=== PATIENT | male | born 1950 | race Caucasian/White ===

== ENCOUNTER 2021-10-14 20:46 | Inpatient (IN) | payer MEDICARE, MEDICAID, SELFPAY ==
--- NOTE | ~2021-10-14 | XR_ITS ---
EXAMINATION: XR chest 1V portable Exam Date/Time: 10/14/2021 21:01 CDT HISTORY: cough, covid+, sob, today HX CVA Comparison: None available. RESULT: Lines, tubes, and devices: None. Lungs and pleura: The lateral costophrenic angle is excluded from the [id number]. Lung volumes wi th crowding. Subtle patchy reticular and groundglass opacities. Cardiomediastinal silhouette: Patient is rotated to the left. Grossly normal cardiomediastinal silho uette. Other: No acute osseous or upper abdominal finding. IMPRESSION: Limited examination due to exclusion of the left inferior costophrenic angle from the [id number]-cm-melk, degree of inspiration, and rotation. Pulmonary opacities may reflect crowding with atelectasis versus atypical infection. Reviewed, dictated and finalized at location K. IMPRESSION: Limited examination due to exclusion of the left inferior costophrenic angle fr om the [id number], degree of inspiration, and rotation. Pulmonary opacities may reflect crowding with atelectasis versus atypical infection.
--- NOTE | ~2021-10-14 | XR_ITS ---
EXAMINATION: XR chest port-a-cath/central DATE: 10/15/2021 00:58 INDICATION: Central line placement. TECHNIQUE: A single frontal view of the chest was obtained. COMPARISON: Single view 10/14/2021, chest CT 10/15/2021 FINDINGS: There are airspace opacities in left lower lung zone. No pleural effusion or pneumothorax. The heart size is normal. A left internal jugular central venous catheter is seen with tip in the lef t brachiocephalic vein. IMPRESSION: 1. Central line tip in the left brachiocephalic vein. 2. Airspace opacities in left lower lung zone, consistent with pneumonia. Reviewed, dictated and finalized at location A.
--- NOTE | ~2021-10-14 | XR_ITS ---
EXAMINATION: XR chest 1V portable DATE: 10/20/2021 08:29 INDICATION: Pleural effusion. TECHNIQUE: A single frontal view of the chest was obtained. COMPARISON: Chest single view 10/18/2021, chest CT 10/15/2021 FINDINGS: The lung volumes are small. There are airspace opacities in the lower lung zones. No pleura l effusion or pneumothorax. The heart size is normal. A left internal jugular central venous catheter is seen with tip in the superior vena cava. IMPRESSION: 1. Improved airspace opacities in the lower lung zones, consistent with atelectasis versus pneumonia. Reviewed, dictated and finalized at location B. IMPRESSION: 1. Improved airspace opacities in the lower lung zones, consistent with atelect asis versus pneumonia.
--- NOTE | ~2021-10-14 | CT_ITS ---
EXAMINATION: CT chest abdomen pelvis wo con DATE: 10/15/2021 02:31 INDICATION: Shock. COVID-19 positive. TECHNIQUE: Computed tomography (CT) of the chest, abdomen, and pelvis was performed without intraveno us contrast. Automated exposure control and iterative reconstruction technique were employed. The dos e-length product was 2158.48 mGy-cm. COMPARISON: None FINDINGS: CHEST CT: There is material in the trachea. There is material in the left-sided bronchi. There are centrilobula r nodules in the lower lobes. There are mild groundglass opacities in left lower lobe and lingula. Th ere are trace pleural effusions. The heart size is normal. No pericardial effusion. A left internal j ugular central venous catheter is seen with tip in the left brachiocephalic vein. There are nodules i n the thyroid measuring up to 11 mm, likely not clinically significant. There are bridging endplate o steophytes at multiple levels in the spine, consistent with diffuse idiopathic skeletal hyperostosis (DISH). There is a chronic compression fracture of T12. ABDOMEN/PELVIS CT: There is diffuse hepatic steatosis. The gallbladder, spleen, pancreas, adrenal glands, and kidneys ar e normal. There is no urolithiasis. Stool distends the rectum. The appendix is normal. There are no p athologically enlarged lymph nodes. There is no free intraperitoneal fluid. The bladder is decompress ed by a Stringer catheter. The prostate is moderately enlarged. There is mild lumbar spondylosis. IMPRESSION: 1. Material in the trachea and left-sided bronchi, which may be aspiration or mucus. 2. Pneumonia involving the lower lobes and lingula. Reviewed, dictated and finalized at location A. IMPRESSION: 1. Material in the trachea and left-sided bronchi, which may be aspiration or m ucus. 2. Pneumonia involving the lower lobes and lingula.
--- NOTE | ~2021-10-14 | XR_ITS ---
EXAMINATION: XR chest 1V portable Exam Date/Time: 10/18/2021 13:45 CDT HISTORY: pna DROPLET PRECAUTIONS Comparison: None available. RESULT: Lines, tubes, and devices: Left IJ central line remains in stable and good position. Lungs and pleura: Worsening bilateral mid and lower lung opacities increasing blunting of the bilate ral costophrenic angles. Cardiomediastinal silhouette: Stable, partially obscured cardiomediastinal silhouette. Other: No acute osseous or upper abdominal finding. IMPRESSION: Worsening pulmonary opacities, may reflect pulmonary edema and/or worsening infection/pneumonitis wit h increasing small bilateral effusions. Reviewed, dictated and finalized at location K. IMPRESSION: Worsening pulmonary opacities, may reflect pulmonary edema and/or worsening inf ection/pneumonitis with increasing small bilateral effusions.
[2021-10-14 20:47] VITALS: BP 153/61; PULSE 78; RESP 13; TEMP 39.4; O2SAT 93
--- NOTE | 2021-10-14 20:54 | ED.AMS ---
HPI - Altered Mental Status General Chief Complaint: Altered Mental Status Stated Complaint: AMS , COVID + TODAY Time Seen by Provider: 10/14/21 20:52 History of Present Illness HPI narrative: Per [facility], patient is usually ANO x3, but he seems confused today, with cough and phlegm. Patient unable to verbalize anything at this time. Related Data Allergies Allergy/AdvReac Type Severity Reaction Status Date / Time moxifloxacin Allergy Unknown Verified 10/14/21 20:58 Review of Systems Review of Systems: ROS unobtainable: Yes unobtainable due to medical condition [facility] Past Medical History Medical History (Updated 10/14/21 @ 23:05 by Noreen Guardado MD) CVA (cerebral vascular accident) Diabetes Exam Narrative: EXAMINATION OF ORGAN SYSTEMS/BODY AREAS: Constitutional: Vital signs per nursing GENERAL:Appears uncomfortable in bed, coughing and eyes closed HEAD: Normal with no signs of head trauma. EYES: Eyes closed ENT: Airway intact LUNGS: Nonlabored breathing. HEART: Tachycardic ABD: [Soft], [nontender to palpation] EXT: Left side weakness SKIN: [No rashes or lesions or ulcers NEURO: [Lethargic.] Course Vital Signs Vital signs: Vital Signs Temperature 103 F H 10/14/21 20:47 Pulse Rate 78 10/14/21 20:47 Respiratory Rate 13 10/14/21 20:47 Blood Pressure 153/61 H 10/14/21 20:47 Pulse Oximetry 93 10/14/21 20:47 Oxygen Delivery Room Air 10/14/21 20:47 Temperature 103 F H 10/14/21 20:47 Pulse Rate 78 10/14/21 20:47 Respiratory Rate 13 10/14/21 20:47 Blood Pressure 153/61 H 10/14/21 20:47 Pulse Oximetry 95 10/14/21 20:56 Oxygen Delivery Nasal Cannula 10/14/21 20:56 Oxygen Flow Rate 2 10/14/21 20:56 MDM - Altered Mental Status MDM Narrative Medical decision making narrative: 71yoM p/w COVID+ and lethargy, VS notable for fever, exam shows lethargic confused patient who isn't speaking. He is treated with oxygen, IV fluids, Tylenol, and on reevaluation is now alert, oriented, speaking and telling me that he just does not feel well at all. Labs and imaging within acceptable limits. He will be admitted due to his oxygen requirement, he is started on decadron, case discussed with hospitalist Dr. Costello. Lab Data Result diagrams: 10/14/21 21:34 10/14/21 21:34 Labs: Lab Results 10/14/21 10/14/21 10/14/21 Range/Units 21:34 21:34 21:34 WBC 8.1 (4.5-10.0) K/mm3 RBC 4.54 L (4.6-6.20) M/mm3 Hgb 13.4 L (14.0-18.0) g/dL Hct 41.7 L (42.0-52.0) % MCV 91.9 (80-100) fl MCH 29.5 (26-34) pg MCHC 32.1 (32-36) g/dl RDW 13.9 (11.5-14.5) % Plt Count 323 (150-375) k/mm3 MPV 10.0 (7.4-10.4) fl Immature Gran % (Auto) 0.5 (0-0.5) % Neut % (Auto) 78.9 H (45.5-73.1) % Lymph % (Auto) 12.0 L (18.3-44.2) % [place] % (Auto) 7.8 (2.6-8.5) % Eos % (Auto) 0.4 (0-4.4) % Baso % (Auto) 0.4 (0.2-1.2) % Lymph # (Auto) 0.97 (0.9-3.2) K/mm3 [place] # (Auto) 0.6 (0.1-0.6) K/mm3 Eos # (Auto) 0.0 (0-0.3) K/mm3 Baso # (Auto) 0.0 (0.0-0.1) K/mm3 Abs Immat Gran (auto) 0.04 H (0.00-0.031) K/mm3 Absolute Neuts (auto) 6.4 (1.3-6.7) K/mm3 Absolute Nucleated RBC 0.0 (0.0-0.012) K/mm3 Nucleated RBC % 0.0 (0.0-0.2) % Sodium 134 L (137-145) mmol/L Potassium 3.4 (3.4-5.0) mmol/L Chloride 98 (98-107) mmol/L Carbon Dioxide 28 (22-30) mmol/L Anion Gap 8 (8-16) mmol/L BUN 22 H (9-20) mg/dL Creatinine 1.50 H (0.7-1.3) mg/dL Estim Creat Clear Calc 53 ml/min Estimated GFR 46 L (59 - ) Glucose 276 H (65-110) mg/dL Calcium 9.0 (8.4-10.2) mg/dL Total Bilirubin 0.8 (0.2-1.3) mg/dL AST 31 (17-59) U/L ALT 23 (6-50) U/L Alkaline Phosphatase 90 (38-126) U/L Total Protein 8.0 (6.3-8.2) g/dL Albumin 3.8 (3.5-5.1) g/dL Urine Color Yellow (Yellow) Urine Appearance Clear (Clear) Urine
[2021-10-14 20:56] VITALS: O2SAT 95
[2021-10-14 21:44] LABS: Basophils Percent Auto 0.4 % (0.2-1.2); Eosinophils Percent Auto 0.4 % (0-4.4); Hematocrit 41.7 % (42.0-52.0); Hemoglobin 13.4 g/dL (14.0-18.0); Immature Granulocyte Absolute 0.04 K/mm3 (0.00-0.031); Immature Granulocyte Percent A 0.5 % (0-0.5); Lymphocytes Absolute Auto 0.97 K/mm3 (0.9-3.2); Mean Corpuscular HGB Conc 32.1 g/dl (32-36); Mean Corpuscular Hemoglobin 29.5 pg (26-34); Mean Corpuscular Volume 91.9 fl (80-100); Monocytes Absolute Auto 0.6 K/mm3 (0.1-0.6); Monocytes Percent Auto 7.8 % (2.6-8.5); Neutrophils Absolute Auto 6.4 K/mm3 (1.3-6.7); Neutrophils Percent Auto 78.9 % (45.5-73.1); Platelet Count Result 323 k/mm3 (150-375); Red Blood Count 4.54 M/mm3 (4.6-6.20); Red Cell Distribution Width 13.9 % (11.5-14.5); White Blood Count 8.1 K/mm3 (4.5-10.0)
[2021-10-14 21:50] LABS: Appearance Urine Clear (Clear); Bilirubin Urine Negative (Negative); Blood Urine Negative (Negative); Color Urine Yellow (Yellow); Glucose Urine UA Trace mg/dL (Negative); Ketones Urine Negative (Negative); Leukocyte Esterase Ur Negative LEU/UL (Negative); Nitrate Urine Negative (Negative); Protein Urine 1+ mg/dL (Negative); pH Urine 5.5 (5.0-9.0)
[2021-10-14 21:58] LABS: Alanine Aminotransferase 23 U/L (6-50); Albumin Level 3.8 g/dL (3.5-5.1); Alkaline Phosphatase 90 U/L (38-126); Anion Gap 8 mmol/L (8-16); Aspartate Amino Transferase 31 U/L (17-59); Bilirubin,Total 0.8 mg/dL (0.2-1.3); Blood Urea Nitrogen 22 mg/dL (9-20); Carbon Dioxide 28 mmol/L (22-30); Chloride 98 mmol/L (98-107); Estimated CRCL calculation 53 ml/min; Estimated Glomerular Filt Rate 46; Glucose 276 mg/dL (65-110); Potassium 3.4 mmol/L (3.4-5.0); Sodium 134 mmol/L (137-145)
[2021-10-14 22:00] LABS: Bacteria Urine Trace /hpf; Mucus Urine Rare /lpf; WBC Urine 0-3 /hpf
[2021-10-14 22:01] LABS: Add Urine Microscopic? YES
[2021-10-14] MEDS: LACTATED RINGERS 1,000 ML 999 ML IV CONT (23:06)
[2021-10-15] VITALS (29 sets, daily range): BP systolic 79–139; BP diastolic 31–84; PULSE 44–91; RESP 8–29; TEMP 36.2–37.2; O2SAT 91–99; BMI 37.9
--- NOTE | 2021-10-15 00:12 | PC.NURSE ---
Pt found to be hypotensive after taking shift report. EDP notified and 1L of lactated ringer's ordered and infusing at this time.
[2021-10-15] MEDS: LACTATED RINGERS 1,000 ML 999 ML IV CONT ×2 (00:14→00:30)
--- NOTE | 2021-10-15 00:24 | PC.NURSE ---
Verbal consent received for central line at this time
--- NOTE | 2021-10-15 00:25 | PC.NURSE ---
VORB received for vancomycin and cefepime at this time.
[2021-10-15] MEDS: NOREPINEPHRINE 8 MG/D5W 250 ML 8 MG/250 ML BAG 9.38 MG IV CONT (00:55)
--- NOTE | 2021-10-15 01:09 | PC.NURSE ---
Per EDP Dr. Guardado the pt should have received a total of three liters of LR which have been infused. There is still one order for a bolus of LR on the JUL which is not needed at this time. Discussed w/ Dr. Barker about titrating norepinephrine to maintain MAP of 65-70.
--- NOTE | 2021-10-15 02:06 | PM.IMHP ---
H&P: HPI History of Present Illness Date/Time: 10/15/21 02:07 Chief Complaint: Altered mental status, diagnosed with COVID today Narrative: 71-year-old male with past medical history of diabetes mellitus and left hemiplegia due to prior CVA who [facility] ER from [facility] via [facility] due to increased work of breathing and altered mental status. Patient was diagnosed with COVID earlier today. Review of Systems Review of Systems: Review of systems was attempted but limited due to the patient's acute metabolic encephalopathy due to septic shock. [facility] Past Medical History Medical History CVA (cerebral vascular accident) Diabetes Surgical History Surgical History Surgical history unknown Family History Family History Other Unknown family medical history Social History Social History (Updated 10/15/21 @ 03:54 by Sola Costello DO) Social History: He has resided at [facility] since 06/04/2019. I am unable to obtain any other social history due to patient's metabolic encephalopathy. Code status: Full code per advance directive form Healthcare power of steamfitter apprentice: Monique Danilo (sister) Smoking status: Former smoker Alcohol intake: former Substance use: never Spiritual care concerns: No Meds Home Medications and Allergies Home Medications Medication Instructions Recorded Confirmed Type acetaminophen 325 mg tablet 325 mg PO Q6-8H PRN Fever Or Pain 10/15/21 10/15/21 History apixaban 5 mg tablet (Eliquis) 5 mg PO BID 10/15/21 10/15/21 History cholecalciferol (vitamin D3) 50 50 mcg PO DAILY 10/15/21 10/15/21 History mcg (2,000 unit) capsule (Vitamin D3) escitalopram oxalate 10 mg tablet 10 mg PO DAILY 10/15/21 10/15/21 History glipizide 10 mg tablet 10 mg PO BID 10/15/21 10/15/21 History insulin aspart U-100 100 unit/mL 18 unit subcut TID 10/15/21 10/15/21 History subcutaneous solution (Novolog U-100 Insulin aspart) insulin glargine 100 unit/mL 70 unit subcut QPM 10/15/21 10/15/21 History subcutaneous solution (Lantus U-100 Insulin) loratadine 10 mg tablet 10 mg PO DAILY 10/15/21 10/15/21 History losartan 100 1 tablet PO BID 10/15/21 10/15/21 History mg-hydrochlorothiazide 12.5 mg tablet sennosides 8.6 mg-docusate sodium 1 tab-cap PO HS 10/15/21 10/15/21 History 50 mg tablet (Senexon-S) simvastatin 10 mg tablet 10 mg PO DAILY 10/15/21 10/15/21 History trazodone 50 mg tablet 50 mg PO HS 10/15/21 10/15/21 History vitamin B complex (B 1 tablet PO DAILY 10/15/21 10/15/21 History Complex-Vitamin B12 tablet) Allergies Allergy/AdvReac Type Severity Reaction Status Date / Time moxifloxacin Allergy Unknown Verified 10/14/21 20:58 Vital Signs Vital Signs - 24 hr 10/14/21 20:47 10/14/21 20:56 10/15/21 00:13 Temperature 103 F H Pulse Rate 78 66 Respiratory Rate 13 25 H Blood Pressure 153/61 H 93/80 L Pulse Oximetry 93 95 94 Oxygen Delivery Room Air Nasal Cannula Oxygen Flow Rate 2 10/15/21 00:31 10/15/21 00:40 10/15/21 00:55 Temperature Pulse Rate 63 Respiratory Rate Blood Pressure 85/31 L 96/38 L 96/38 L Pulse Oximetry Oxygen Delivery Oxygen Flow Rate 10/15/21 01:02 10/15/21 01:06 10/15/21 01:27 Temperature Pulse Rate 56 L 64 Respiratory Rate 29 H 29 H Blood Pressure 100/43 L 139/55 L Pulse Oximetry 96 94 95 Oxygen Delivery Nasal Cannula Oxygen Flow Rate 3 10/15/21 02:02 Temperature 99 F Pulse Rate Respiratory Rate Blood Pressure Pulse Oximetry Oxygen Delivery Oxygen Flow Rate Exam Narrative: Weight 120 kg BMI 38 Const: Other: Acutely ill-appearing, obese HENMT: Other: Mucous membranes are dry, head is normocephalic atraumatic, nasal cannula in place, crowded posterior oropharynx E
[2021-10-15 02:19] LABS: Lactic Acid Reflex 2.9 mmol/L (0.7-2.0)
[2021-10-15] MEDS: NEOMYCIN/POLYMYXIN/BACITRACIN OINTMENT 15 GM TUBE 1 APPLIC TOPICAL (02:47)
[2021-10-15] MEDS: REMDESIVIR 200 MG/NS 250 ML 200 MG/250 ML BAG 250 MG IVPB (03:18)
[2021-10-15] MEDS: SODIUM CHLORIDE 0.9% IV 1,000 ML 50 ML IV CONT (03:19)
[2021-10-15 03:26] LABS: Procalcitonin 0.3 ng/mL
[2021-10-15 05:07] LABS: Reflex Lactic Acid Yes or No Add Lactic
[2021-10-15] MEDS: BISACODYL 10 MG SUPPOSITORY RECTAL (05:09)
[2021-10-15 05:25] LABS: Hematocrit 37.6 % (42.0-52.0); Hemoglobin 11.9 g/dL (14.0-18.0); Mean Corpuscular HGB Conc 31.6 g/dl (32-36); Mean Corpuscular Hemoglobin 29.8 pg (26-34); Mean Platelet Volume 9.8 fl (7.4-10.4); Platelet Count Result 287 k/mm3 (150-375); Red Cell Distribution Width 13.7 % (11.5-14.5); White Blood Count 8.2 K/mm3 (4.5-10.0)
[2021-10-15 05:34] LABS: Lactic Acid Reflex 1.9 mmol/L (0.7-2.0)
[2021-10-15 05:36] LABS: INR 1.6; Prothrombin Time 18.5 Seconds (11.1-14.7)
[2021-10-15 05:56] LABS: Alanine Aminotransferase 21 U/L (6-50); Albumin Level 3.2 g/dL (3.5-5.1); Alkaline Phosphatase 66 U/L (38-126); Anion Gap 9 mmol/L (8-16); Aspartate Amino Transferase 25 U/L (17-59); Bilirubin,Total 0.8 mg/dL (0.2-1.3); Blood Urea Nitrogen 22 mg/dL (9-20); Calcium 8.2 mg/dL (8.4-10.2); Carbon Dioxide 24 mmol/L (22-30); Chloride 99 mmol/L (98-107); Estimated CRCL calculation 51 ml/min; Estimated Glomerular Filt Rate 46; Glucose 409 mg/dL (65-110); Lactate Dehydrogenase 371 U/L (313-618); Potassium 3.7 mmol/L (3.4-5.0); Sodium 132 mmol/L (137-145)
[2021-10-15 06:00] LABS: CRP 12.7 mg/dL (<1.0)
[2021-10-15 06:01] LABS: SARS-CoV-2 RNA PCR Positive
--- NOTE | 2021-10-15 06:04 | PCRCNOTE ---
Patient was ordered an incentive spirometer this morning. Patient is still fairly sleepy, dayshift therapist will teach patient.
[2021-10-15] MEDS: INSULIN ASPART (*BKC) 100 UNITS/ML SUB-Q ×5 (07:36→21:13)
[2021-10-15] MEDS: APIXABAN 5 MG TABLET PO ×2 (07:45→16:56)
[2021-10-15] MEDS: CHOLECALCIFEROL 1,000 UNITS TABLET 2000 UNITS PO (07:45)
[2021-10-15] MEDS: DEXAMETHASONE SOD PHOS INJ 4 MG/ML VIAL 6 MG IV PUSH (07:45)
[2021-10-15] MEDS: ESCITALOPRAM OXALATE 10 MG TABLET PO (07:46)
[2021-10-15] MEDS: LORATADINE 10 MG TABLET PO (07:46)
[2021-10-15] MEDS: ALBUTEROL SULFATE NEB 2.5 MG/3 ML INH 5 MG INHALATION ×3 (08:21→21:40)
[2021-10-15] MEDS: IPRATROPIUM BR 0.02% INH SOLN 0.5 MG/2.5 ML VIAL INHALATION ×3 (08:21→21:40)
[2021-10-15 08:45] LABS: Glucose Point of Care 408 mg/dl (65-105)
--- NOTE | 2021-10-15 08:58 | WPDCNINT ---
Assessment and Plan Assessment and plan (1) Septic shock: Code(s): A41.9 - Sepsis, unspecified organism; R65.21 - Severe sepsis with septic shock Status: Acute Assessment and Plan: patient met criteria for septic shock and was hypertensive in the ED received 30 mL/kg IV fluid bolus continue maintenance IV fluids Levophed titration to maintain map and is requiring low-dose at this time lactic acid has normalized source likely says aspiration pneumonia change cefepime to Zosyn continue vancomycin blood cultures have been sent and a (2) Type 2 diabetes mellitus with hyperglycemia, with long-term current use of insulin: Code(s): E11.65 - Type 2 diabetes mellitus with hyperglycemia; Z79.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 of insulin Status: Acute Assessment and Plan: poorly controlled and blood sugars elevated likely worsened by dexamethasone will give Lantus at this time and change sliding scale to q.4 hours high may need insulin infusion if unable to control with these measures (3) Dysphagia: Code(s): R13.10 - Dysphagia, unspecified Status: Acute Assessment and Plan: consult speech therapy for swallow evaluation CT scan does not show any mass depending on swallow evaluation results he may need GI evaluation (4) Acute kidney injury: Code(s): N17.9 - Acute kidney failure, unspecified Status: Acute Assessment and Plan: presented with creatinine of 1.5 which is slightly higher than normal. baseline Creatinine unknown continue IV fluids Check CK level check urine electrolytes monitor urine output creatinine electrolytes CT scan denies show any hydronephrosis or stones (5) COVID-19: Code(s): U07.1 - COVID-19 Status: Acute Assessment and Plan: patient tested for COVID-19. He was vaccinated in May of 2020 with 2 doses but not receive any booster CT scan does not suggest COVID-19 pneumonia but rather consistent with aspiration pneumonia he is on remdesivir and dexamethasone since he is hypoxic (6) Aspiration pneumonia: Code(s): J69.0 - Pneumonitis due to inhalation of food and vomit Status: Acute Assessment and Plan: see above (7) Metabolic encephalopathy: Code(s): G93.41 - Metabolic encephalopathy Status: Acute Assessment and Plan: likely secondary to sepsis. Seems to have improved as patient is now alert oriented x3 And at baseline check ammonia and TSH avoid sedatives continue to monitor (8) Constipation: Code(s): K59.00 - Constipation, unspecified Status: Acute Assessment and Plan: scheduled MiraLax and Colace p.r.n. Dulcolax suppository may need enema if these are ineffective Additional Plan DVT prophylaxis - continue liquids Stress ulcer prophylaxis - Pepcid Nutrition - NPO until swallow evaluation done Code Status - Full Code Total Critical Care Time - 35 minutes Due to a high probability of clinically significant, life threatening deterioration, the patient required my highest level of preparedness to intervene emergently and I personally spent this critical care time directly and personally managing the patient. This critical care time included obtaining a history; examining the patient; pulse oximetry; ordering and review of studies; arranging urgent treatment with development of a management plan; evaluation of patient's response to treatment; frequent reassessment; and discussions with other providers. It was exclusive of separately billable procedures and treating other patients and teaching time. Please see Assessment and Plan section and the rest of the note for further information on patient assessment and treatment Public Health Teacher Consult Note Consult date: 10/15/21 Reason for consult: Pneumonia, COVID-19, septic shock HPI: Riley Priest is a 71 year old male with possible history of diabetes mellitus, CVA jose
[2021-10-15] MEDS: INSULIN GLARGINE (*BKC) 100 UNITS/ML 40 UNITS SUB-Q (09:00)
[2021-10-15] MEDS: PIPERACILLIN/TAZOBACTAM SOD 4.5 GM in SODIUM CHLORIDE 0.9% IV 100 ML 200 ML IVPB ×3 (09:01→21:04)
--- NOTE | 2021-10-15 09:52 | PCSTNOTE ---
Please refer to the Bedside Swallow Evaluation in the EMR. Please note, silent aspiration cannot be ruled out at bedside.
[2021-10-15] MEDS: SIMVASTATIN 10 MG TABLET PO (10:00)
[2021-10-15] MEDS: FAMOTIDINE 20 MG/2 ML VIAL IV PUSH ×2 (10:00→21:06)
[2021-10-15 10:32] LABS: Creatine Kinase 274 U/L (55-170)
[2021-10-15 10:33] LABS: Ammonia < 9 umol/L (9-30)
[2021-10-15 10:49] LABS: Glucose Point of Care 440 mg/dl (65-105)
[2021-10-15 11:47] LABS: Creatinine Urine 51.1 mg/dL
[2021-10-15 12:01] LABS: Sodium Urine Random 60 meq/L
[2021-10-15 13:10] LABS: Glucose Point of Care 410 mg/dl (65-105)
[2021-10-15 14:18] LABS: Glucose Point of Care 305 mg/dl (65-105)
[2021-10-15 15:35] LABS: Glucose Point of Care 328 mg/dl (65-105)
[2021-10-15 16:42] LABS: Glucose Point of Care 322 mg/dl (65-105)
[2021-10-15] MEDS: INSULIN GLARGINE (*BKC) 100 UNITS/ML 30 UNITS SUB-Q (16:55)
[2021-10-15] MEDS: REMDESIVIR 100 MG/NS 250 ML 100 MG/250 ML BAG 250 MG IVPB (21:04)
[2021-10-15] MEDS: SENNA/DOCUSATE SODIUM TABLET 1 TAB PO (21:06)
[2021-10-15 21:32] LABS: Glucose Point of Care 308 mg/dl (65-105)
[2021-10-15 22:29] LABS: Thyroid Stimulating Hormone Reflex 0.436 uIU/mL (0.465-4.68)
[2021-10-16] VITALS (16 sets, daily range): BP systolic 81–117; BP diastolic 40–61; PULSE 42–64; RESP 13–24; TEMP 35.8–36.6; O2SAT 96–100
[2021-10-16] MEDS: INSULIN ASPART (*BKC) 100 UNITS/ML SUB-Q ×6 (00:23→21:01)
[2021-10-16 00:30] LABS: Glucose Point of Care 291 mg/dl (65-105)
[2021-10-16] MEDS: SODIUM CHLORIDE 0.9% IV 1,000 ML 50 ML IV CONT (00:53)
[2021-10-16 00:54] LABS: Free T4 Free Thyroxine Reflex 1.38 ng/dL (0.78-2.19)
[2021-10-16] MEDS: PIPERACILLIN/TAZOBACTAM SOD 4.5 GM in SODIUM CHLORIDE 0.9% IV 100 ML 200 ML IVPB ×4 (02:21→20:06)
[2021-10-16 02:50] LABS: Total Triiodothyronine (T3) 0.67 NG/ML (0.97-1.69)
[2021-10-16] MEDS: ALBUTEROL SULFATE NEB 2.5 MG/3 ML INH 5 MG INHALATION ×4 (03:26→20:29)
[2021-10-16] MEDS: IPRATROPIUM BR 0.02% INH SOLN 0.5 MG/2.5 ML VIAL INHALATION ×4 (03:27→20:30)
[2021-10-16 04:35] LABS: Glucose Point of Care 333 mg/dl (65-105)
[2021-10-16 04:39] LABS: Hematocrit 31.2 % (42.0-52.0); Hemoglobin 10.3 g/dL (14.0-18.0); Mean Corpuscular Hemoglobin 29.7 pg (26-34); Mean Corpuscular Volume 89.9 fl (80-100); Mean Platelet Volume 10.2 fl (7.4-10.4); Platelet Count Result 258 k/mm3 (150-375); Red Blood Count 3.47 M/mm3 (4.6-6.20); Red Cell Distribution Width 13.6 % (11.5-14.5); White Blood Count 9.3 K/mm3 (4.5-10.0)
[2021-10-16 04:50] LABS: INR 2.2; Prothrombin Time 23.2 Seconds (11.1-14.7)
[2021-10-16 04:56] LABS: Alanine Aminotransferase 16 U/L (6-50); Albumin Level 2.7 g/dL (3.5-5.1); Alkaline Phosphatase 46 U/L (38-126); Anion Gap 5 mmol/L (8-16); Aspartate Amino Transferase 18 U/L (17-59); Bilirubin,Total 0.2 mg/dL (0.2-1.3); Blood Urea Nitrogen 31 mg/dL (9-20); Calcium 7.9 mg/dL (8.4-10.2); Carbon Dioxide 25 mmol/L (22-30); Chloride 100 mmol/L (98-107); Estimated CRCL calculation 55 ml/min; Estimated Glomerular Filt Rate 50; Glucose 314 mg/dL (65-110); Magnesium 1.6 mg/dL (1.6-2.3); Phosphorus 2.4 mg/dL (2.5-4.5); Potassium 2.8 mmol/L (3.4-5.0); Sodium 130 mmol/L (137-145)
[2021-10-16] MEDS: KCL 40 MEQ/WATER 100 ML 100 ML 25 ML IVPB (05:47)
--- NOTE | 2021-10-16 08:21 | ECG_ITS ---
Measurements Intervals [place] Rate: 51 P: 248 [place]: 125 QRS: -46 QRSD: 122 T: 6 QT: 492 QTc: 456 Interpretive Statements SINUS BRADYCARDIA POSSIBLE RIGHT VENTRICULAR CONDUCTION DELAY [RSR (QR) IN V1/V2] LEFT ANTERIOR FASCICULAR BLOCK [QRS AXIS <= -45, QR IN I, RS IN II] NONSPECIFIC T-WAVE ABNORMALITY NO PREVIOUS ECG AVAILABLE FOR COMPARISON Electronically Signed On 10-16-2021 14:12:43 CDT by Will Gonzalez M.D.
[2021-10-16] MEDS: SIMVASTATIN 10 MG TABLET PO (09:18)
[2021-10-16] MEDS: CHOLECALCIFEROL 1,000 UNITS TABLET 2000 UNITS PO (09:18)
[2021-10-16] MEDS: LORATADINE 10 MG TABLET PO (09:18)
[2021-10-16] MEDS: APIXABAN 5 MG TABLET PO ×2 (09:18→16:10)
[2021-10-16] MEDS: polyethylene glycoL 3350 17 GM POWD.PACK PO (09:18)
[2021-10-16] MEDS: DEXAMETHASONE SOD PHOS INJ 4 MG/ML VIAL 6 MG IV PUSH (09:18)
[2021-10-16] MEDS: ESCITALOPRAM OXALATE 10 MG TABLET PO (09:18)
[2021-10-16] MEDS: FAMOTIDINE 20 MG/2 ML VIAL IV PUSH ×2 (09:18→20:08)
[2021-10-16] MEDS: POTASSIUM CHLORIDE 20 MEQ PACKET (FOR LIQUID) 40 MEQ PO (09:19)
--- NOTE | 2021-10-16 10:06 | WPDINTPN ---
Progress Note: A&P Assessment and Plan (1) Septic shock: Code(s): A41.9 - Sepsis, unspecified organism; R65.21 - Severe sepsis with septic shock Status: Acute Assessment and Plan: patient met criteria for septic shock and was hypotensive in the ED received 30 mL/kg IV fluid bolus continue maintenance IV fluids for now Levophed has been weaned off since yesterday lactic acid has normalized source likely appears to be aspiration pneumonia and patient is also growing Gram-positive cocci in his blood cultures Identification a susceptibilities are pending continue vancomycin and Zosyn His blood pressure has been soft while he sleeps but improves when he is awake (2) Type 2 diabetes mellitus with hyperglycemia, with long-term current use of insulin: Code(s): E11.65 - Type 2 diabetes mellitus with hyperglycemia; Z79.4 - [facility] (current) use of insulin Status: Acute Assessment and Plan: poorly controlled and blood sugars elevated likely worsened by dexamethasone Increase dose of Lantus Add with meal insulin Change sliding scale to Q a.c. and HS (3) Dysphagia: Code(s): R13.10 - Dysphagia, unspecified Status: Acute Assessment and Plan: Patient had a swallow evaluation done by speech therapist yesterday and is on modified diet He awaits paid him swallow is poor delayed because of him being tested for COVID-19 CT scan does not show any mass (4) Acute kidney injury: Code(s): N17.9 - Acute kidney failure, unspecified Status: Acute Assessment and Plan: presented with creatinine of 1.5 which is slightly higher than normal. baseline Creatinine unknown continue IV fluids CK level to 74 FENA 1.3% check urine electrolytes monitor urine output creatinine electrolytes CT scan did not show any hydronephrosis or stones (5) COVID-19: Code(s): U07.1 - COVID-19 Status: Acute Assessment and Plan: patient tested for COVID-19. He was vaccinated in May of 2020 with 2 doses but did not receive any booster CT scan does not suggest COVID-19 pneumonia but rather consistent with aspiration pneumonia he was started on remdesivir and dexamethasone since he was hypoxic on presentation but now he is on room air (6) Aspiration pneumonia: Code(s): J69.0 - Pneumonitis due to inhalation of food and vomit Status: Acute Assessment and Plan: see above (7) Metabolic encephalopathy: Code(s): G93.41 - Metabolic encephalopathy Status: Acute Assessment and Plan: likely secondary to sepsis. Seems to have improved as patient is now alert oriented x3 And at baseline Normal ammonia and slightly abnormal TSH Patient is now AO x3 avoid sedatives continue to monitor (8) Constipation: Code(s): K59.00 - Constipation, unspecified Status: Acute Assessment and Plan: Improved with scheduled MiraLax and Colace Continue p.r.n. Dulcolax suppository Additional Plan DVT prophylaxis - continue Eliquis Stress ulcer prophylaxis - Pepcid Nutrition -modified diet as per swallow evaluation Code Status - Full Code Transfer out of ICU today Subjective Date/time seen: 10/16/21 10:06 Patient has remained off of Levophed since yesterday. His blood pressure was soft while he was sleeping and he was bradycardic. He appears to have apneic episodes when sleeping and appears to have sleep apnea. Otherwise he denies any complaints. Still has some cough but no shortness of breath or chest pain denies any fever and was afebrile overnight. He had bowel movement and urine output was adequate. Had a swallow study and is on modified diet as per recommendations from speech therapist. All other systems were reviewed and were negative Review of Systems Review of Systems: All systems reviewed & are unremarkable except as noted in HPI and below ( HPI) Exam Narrative: General: Pt is alert awake and
[2021-10-16] MEDS: POTASSIUM PHOS,M-BASIC-D-BASIC 20 MMOL in SODIUM CHLORIDE 0.9% IV 250 ML 64.17 MMOL IVPB (11:02)
[2021-10-16] MEDS: ALBUMIN HUMAN 25% 25 GM/100 ML 100 ML IVPB ×3 (11:02→23:44)
[2021-10-16 11:15] LABS: Glucose Point of Care 267 mg/dl (65-105)
[2021-10-16 11:15] LABS: Glucose Point of Care 214 mg/dl (65-105)
--- NOTE | 2021-10-16 11:47 | PM.IMPN ---
Progress Note: A&P Assessment and Plan (1) Septic shock: Code(s): A41.9 - Sepsis, unspecified organism; R65.21 - Severe sepsis with septic shock Status: Acute Assessment and Plan: patient met criteria for septic shock and was hypotensive in the ED received 30 mL/kg IV fluid bolus continue maintenance IV fluids for now Levophed has been weaned off since yesterday lactic acid has normalized source likely appears to be aspiration pneumonia and patient is also growing Gram-positive cocci in his blood cultures Identification a susceptibilities are pending continue vancomycin and Zosyn, started October 15, 2021 His blood pressure has been soft while he sleeps but improves when he is awake (2) Type 2 diabetes mellitus with hyperglycemia, with long-term current use of insulin: Code(s): E11.65 - Type 2 diabetes mellitus with hyperglycemia; Z79.4 - middle or intermediate school principal (current) use of insulin Status: Acute Assessment and Plan: poorly controlled and blood sugars elevated likely worsened by dexamethasone Increase dose of Lantus Add with meal insulin Change sliding scale to Q a.c. and HS (3) Dysphagia: Code(s): R13.10 - Dysphagia, unspecified Status: Acute Assessment and Plan: Patient had a swallow evaluation done by speech therapist yesterday and is on modified diet He awaits paid him swallow is poor delayed because of him being tested for COVID-19 CT scan does not show any mass (4) Acute kidney injury: Code(s): N17.9 - Acute kidney failure, unspecified Status: Acute Assessment and Plan: presented with creatinine of 1.5 which is slightly higher than normal. baseline Creatinine unknown continue IV fluids CK level to 74 FENA 1.3% check urine electrolytes monitor urine output creatinine electrolytes CT scan did not show any hydronephrosis or stones (5) COVID-19: Code(s): U07.1 - COVID-19 Status: Acute Assessment and Plan: patient tested for COVID-19. He was vaccinated in May of 2020 with 2 doses but did not receive any booster CT scan does not suggest COVID-19 pneumonia but rather consistent with aspiration pneumonia he was started on remdesivir and dexamethasone since he was hypoxic on presentation but now he is on room air (6) Aspiration pneumonia: Code(s): J69.0 - Pneumonitis due to inhalation of food and vomit Status: Acute Assessment and Plan: see above (7) Metabolic encephalopathy: Code(s): G93.41 - Metabolic encephalopathy Status: Acute Assessment and Plan: likely secondary to sepsis. Seems to have improved as patient is now alert oriented x3 And at baseline Normal ammonia and slightly abnormal TSH Patient is now AO x3 avoid sedatives continue to monitor (8) Constipation: Code(s): K59.00 - Constipation, unspecified Status: Acute Assessment and Plan: Improved with scheduled MiraLax and Colace Continue p.r.n. Dulcolax suppository Additional Plan DVT prophylaxis - continue Eliquis Stress ulcer prophylaxis - Pepcid Nutrition -modified diet as per swallow evaluation Code Status - Full Code Transfer out of ICU today Subjective Date/time seen: 10/16/21 11:47 Interval history: Patient sitting up in bed watching TV, resting comfortably. No overnight events noted. Per the auditor tax note, he still has some cough and shortness of breath. No fevers or chills noted overnight. Swallow study recommended modified diet as per recommendations. Review of Systems Review of Systems: All systems reviewed & are unremarkable except as noted in HPI and below ( HPI) Exam Narrative: Per the auditor tax Objective Data Vital Signs Vital Signs: Vital Signs - 24 hr 10/15/21 12:00 10/15/21 12:00 10/15/21 14:00 Temperature Pulse Rate 46 L 48 L 54 L Respiratory Rate 21 H Blood Pressure Pulse Oximetry 99 Oxygen Delivery Room Air Oxyg
[2021-10-16] MEDS: INSULIN ASPART (*BKC) 100 UNITS/ML 8 UNITS SUB-Q ×2 (13:09→16:10)
[2021-10-16] MEDS: CENTRAL LINE FLUSH 10 ML IV PUSH ×3 (15:10→21:03)
[2021-10-16 16:15] LABS: Glucose Point of Care 332 mg/dl (65-105)
[2021-10-16] MEDS: INSULIN GLARGINE (*BKC) 100 UNITS/ML 60 UNITS SUB-Q (18:36)
[2021-10-16] MEDS: SENNA/DOCUSATE SODIUM TABLET 1 TAB PO (20:08)
[2021-10-16] MEDS: REMDESIVIR 100 MG/NS 250 ML 100 MG/250 ML BAG 250 MG IVPB (21:02)
[2021-10-16 21:49] LABS: Glucose Point of Care 351 mg/dl (65-105)
[2021-10-17] VITALS (19 sets, daily range): BP systolic 115–145; BP diastolic 50–69; PULSE 50–112; RESP 16–23; TEMP 35.8–36.7; O2SAT 93–98
--- NOTE | 2021-10-17 | ECHO_ITS ---
Patient Info Name: Riley Priest Age: 71 years : 1950 Gender: Male Ht: 74 in Wt: 280 lbs BSA: 2.62 m2 HR: 53 bpm BP: 121 / 71 mmHg Heart Rhythm: Sinus Rhythm Technical Quality: Poor Exam Date: 10/17/2021 1:58 PM Exam Location: [facility] Patient Status: Inpatient Admit Date: 10/14/2021 Staff Ordering Physician: Samir Us MD Videotape Sales Representative: Ashleigh Rosales RDCS Attending Provider: Sola Costello DO Exam Type: CA echo dop color flow w con Study Info Indications R00.1 - Bradycardia, unspecified Complete two-dimensional, color flow and Doppler transthoracic echocardiogram is performed with contrast to opacify the left ventricle and to improve the deliniation of the left ventricle endocardial borders. Contrast/Agitated Saline Contrast/Ag. Saline: Definity Amount: 5.00 ml Summary 1. Left ventricular chamber dimension is normal. 2. Left ventricular systolic function is normal, estimated at 65-70%. 3. There is mildly increased left ventricular wall thickness. 4. The left ventricular diastolic function is normal. 5. Left atrial chamber dimension is moderately enlarged. 6. The mitral valve annulus is moderately calcified. 7. There is mild mitral valve regurgitation. 8. There is mild tricuspid valve regurgitation. 9. Mild pulmonary hypertension, estimated pulmonary arterial systolic pressure is 40 mmHg. 10. There is mild pulmonic regurgitation. Left Ventricle Left ventricular chamber dimension is normal. Left ventricular systolic function is normal, estimated at 65-70%. There is mildly increased left ventricular wall thickness. The left ventricular diastolic function is normal. Right Ventricle Right ventricular chamber dimension is normal. Right ventricular systolic function is normal. Left Atria Left atrial chamber dimension is moderately enlarged. Right Atria Right atrial chamber dimension is normal. Atrial Septum Intact interatrial septum visualized by color flow imaging. Aortic Valve The aortic valve is trileaflet. There is mild aortic valve sclerosis. There is no aortic valve stenosis. There is trace aortic valve regurgitation. Pulmonic Valve The pulmonic valve is normal. There is no pulmonic valve stenosis. There is mild pulmonic regurgitation. Mitral Valve There is no mitral valve stenosis. There is mild mitral valve regurgitation. The mitral valve annulus is moderately calcified. Tricuspid Valve The tricuspid valve leaflets are normal. There is no significant tricuspid valve stenosis. There is mild tricuspid valve regurgitation. Mild pulmonary hypertension, estimated pulmonary arterial systolic pressure is 40 mmHg. Pericardium/Pleural The pericardium appears normal. There is no pericardial effusion. Inferior Vena Cava Normal inferior vena cava with >50% collapse upon inspiration consistent with elevated right atrial pressure, 10 mmHg. Aorta The aortic root size at the sinus of Valsalva is normal. Left Ventricular Outflow Tract Name Value Normal LVOT 2D LVOT Diameter 2.14 cm LVOT Doppler
[2021-10-17] MEDS: ACETAMINOPHEN 325 MG TABLET 650 MG PO (00:20)
[2021-10-17] MEDS: ALBUTEROL SULFATE NEB 2.5 MG/3 ML INH 5 MG INHALATION ×4 (01:55→21:06)
[2021-10-17] MEDS: IPRATROPIUM BR 0.02% INH SOLN 0.5 MG/2.5 ML VIAL INHALATION ×4 (01:55→21:06)
[2021-10-17] MEDS: SODIUM CHLORIDE 0.9% IV 1,000 ML 50 ML IV CONT (02:10)
[2021-10-17] MEDS: PIPERACILLIN/TAZOBACTAM SOD 4.5 GM in SODIUM CHLORIDE 0.9% IV 100 ML 200 ML IVPB ×4 (02:10→21:17)
[2021-10-17 04:38] LABS: Hematocrit 27.7 % (42.0-52.0); Hemoglobin 8.7 g/dL (14.0-18.0); Mean Corpuscular HGB Conc 31.4 g/dl (32-36); Mean Corpuscular Hemoglobin 29.1 pg (26-34); Mean Corpuscular Volume 92.6 fl (80-100); Mean Platelet Volume 9.9 fl (7.4-10.4); Platelet Count Result 225 k/mm3 (150-375); Red Blood Count 2.99 M/mm3 (4.6-6.20); Red Cell Distribution Width 14.1 % (11.5-14.5); White Blood Count 7.2 K/mm3 (4.5-10.0)
[2021-10-17 04:48] LABS: INR 2.2
[2021-10-17 04:58] LABS: Alkaline Phosphatase 42 U/L (38-126); Anion Gap 13 mmol/L (8-16); Aspartate Amino Transferase 18 U/L (17-59); Bilirubin,Total 0.4 mg/dL (0.2-1.3); Blood Urea Nitrogen 38 mg/dL (9-20); Calcium 7.9 mg/dL (8.4-10.2); Carbon Dioxide 19 mmol/L (22-30); Chloride 103 mmol/L (98-107); Estimated CRCL calculation 56 ml/min; Estimated Glomerular Filt Rate 50; Glucose 385 mg/dL (65-110); Magnesium 1.4 mg/dL (1.6-2.3); Phosphorus 2.7 mg/dL (2.5-4.5); Potassium 2.9 mmol/L (3.4-5.0); Sodium 135 mmol/L (137-145)
--- NOTE | 2021-10-17 04:58 | ECG_ITS ---
Measurements Intervals [place] Rate: 105 P: HI: 0 QRS: -63 QRSD: 119 T: 56 QT: 318 QTc: 421 Interpretive Statements ATRIAL FIBRILLATION WITH RAPID VENTRICULAR RESPONSE PATTERN CONSISTENT WITH PULMONARY DISEASE INCOMPLETE RIGHT BUNDLE BRANCH BLOCK [90+ ms QRS DURATION, TERMINAL R IN V1/V2, 40+ ms S IN I/aVL/V4/V5/V6] LEFT ANTERIOR FASCICULAR BLOCK [QRS AXIS <= -45, QR IN I, RS IN II] ST & T-WAVE ABNORMALITY, CONSIDER ISCHEMIA ABNORMAL ECG COMPARED TO ECG 10/16/2021 10:14:24 ATRIAL FIBRILLATION NOW PRESENT INCOMPLETE RIGHT BUNDLE-BRANCH BLOCK NOW PRESENT Electronically Signed On 10-17-2021 13:46:27 CDT by Corey Coyle M.D.
[2021-10-17 05:23] LABS: Hemoglobin A1C 9.7 % (<5.7)
[2021-10-17] MEDS: POTASSIUM CHLORIDE 20 MEQ PACKET (FOR LIQUID) 80 MEQ PO (05:28)
[2021-10-17] MEDS: METOPROLOL TARTRATE INJ 5 MG/5 ML VIAL IV PUSH (05:28)
[2021-10-17] MEDS: ALBUMIN HUMAN 25% 25 GM/100 ML 100 ML IVPB ×3 (05:28→17:56)
[2021-10-17] MEDS: MAGNESIUM SULF 4 GM/WATER100ML 4 GM/100 ML BAG IVPB (05:29)
[2021-10-17] MEDS: CENTRAL LINE FLUSH 10 ML IV PUSH ×4 (05:29→21:18)
[2021-10-17 05:53] LABS: Alanine Aminotransferase 15 U/L (6-50)
[2021-10-17 08:20] LABS: Glucose Point of Care 358 mg/dl (65-105)
--- NOTE | 2021-10-17 08:20 | ECG_ITS ---
Measurements Intervals [employer] Rate: 63 P: -52 PA: 141 QRS: -37 QRSD: 117 T: 87 QT: 450 QTc: 461 Interpretive Statements SINUS RHYTHM MARKED LEFT AXIS DEVIATION [QRS AXIS < -30] LOW QRS VOLTAGE IN PRECORDIAL LEADS [QRS DEFLECTION < 1.0 mV IN CHEST LEADS] POSSIBLE RIGHT VENTRICULAR CONDUCTION DELAY [RSR (QR) IN V1/V2] NONSPECIFIC T-WAVE ABNORMALITY ABNORMAL ECG COMPARED TO ECG 10/17/2021 02:36:59 SINUS RHYTHM NOW PRESENT LEFT-AXIS DEVIATION NOW PRESENT Electronically Signed On 10-17-2021 13:46:58 CDT by Corey Coyle M.D.
[2021-10-17] MEDS: DEXAMETHASONE SOD PHOS INJ 4 MG/ML VIAL 6 MG IV PUSH (08:37)
[2021-10-17] MEDS: CHOLECALCIFEROL 1,000 UNITS TABLET 2000 UNITS PO (08:37)
[2021-10-17] MEDS: polyethylene glycoL 3350 17 GM POWD.PACK PO (08:38)
[2021-10-17] MEDS: SIMVASTATIN 10 MG TABLET PO (08:38)
[2021-10-17] MEDS: ESCITALOPRAM OXALATE 10 MG TABLET PO (08:38)
[2021-10-17] MEDS: APIXABAN 5 MG TABLET PO ×2 (08:38→18:26)
[2021-10-17] MEDS: LORATADINE 10 MG TABLET PO (08:38)
[2021-10-17] MEDS: INSULIN ASPART (*BKC) 100 UNITS/ML SUB-Q ×3 (08:39→17:55)
[2021-10-17] MEDS: INSULIN GLARGINE (*BKC) 100 UNITS/ML 20 UNITS SUB-Q (08:40)
--- NOTE | 2021-10-17 08:42 | PM.IMPN ---
Progress Note: A&P Assessment and Plan (1) Septic shock: Code(s): A41.9 - Sepsis, unspecified organism; R65.21 - Severe sepsis with septic shock Status: Acute Assessment and Plan: patient met criteria for septic shock and was hypotensive in the ED He received 30 mL/kg IV fluid bolus and was treated with IV fluid infusion. He required Levophed for short period of time but has been off of last couple of days I will discontinue maintenance IV fluids at this time Source likely appears to be aspiration pneumonia Blood culture 1/2 positive for staphylococcus warneri which is likely contaminant continue Zosyn and discontinue vancomycin at this time (2) Type 2 diabetes mellitus with hyperglycemia, with long-term current use of insulin: Code(s): E11.65 - Type 2 diabetes mellitus with hyperglycemia; Z79.4 - terminal computer operator (current) use of insulin Status: Acute Assessment and Plan: poorly controlled and blood sugars elevated likely worsened by dexamethasone Increase dose of Lantus at night and will give additional dose this morning Increase with middle insulin meal insulin Continue high-grade saline sliding scale (3) Dysphagia: Code(s): R13.10 - Dysphagia, unspecified Status: Acute Assessment and Plan: Patient had a swallow evaluation done by speech therapist yesterday and is on modified diet He awaits paid him swallow is poor delayed because of him being tested for COVID-19 CT scan does not show any mass (4) Acute kidney injury: Code(s): N17.9 - Acute kidney failure, unspecified Status: Acute Assessment and Plan: presented with creatinine of 1.5 which is slightly higher than normal. baseline Creatinine unknown Despite IV fluids his creatinine has remained unchanged which suggests that this may be his chronic baseline CK level to 74 FENA 1.3% monitor urine output creatinine electrolytes CT scan did not show any hydronephrosis or stones (5) COVID-19: Code(s): U07.1 - COVID-19 Status: Acute Assessment and Plan: patient tested for COVID-19. He was vaccinated in May of 2020 with 2 doses but did not receive any booster CT scan does not suggest COVID-19 pneumonia but rather consistent with aspiration pneumonia he was started on remdesivir and dexamethasone since he was hypoxic on presentation but now he is on room air (6) Aspiration pneumonia: Code(s): J69.0 - Pneumonitis due to inhalation of food and vomit Status: Acute Assessment and Plan: see above (7) Metabolic encephalopathy: Code(s): G93.41 - Metabolic encephalopathy Status: Acute Assessment and Plan: likely secondary to sepsis. Seems to have improved as patient is now alert oriented x3 And at baseline Normal ammonia and slightly abnormal TSH Patient is now AO x3 avoid sedatives continue to monitor (8) Constipation: Code(s): K59.00 - Constipation, unspecified Status: Acute Assessment and Plan: Improved with scheduled MiraLax and Colace Continue p.r.n. Dulcolax suppository (9) Arrhythmia: Code(s): I49.9 - Cardiac arrhythmia, unspecified Status: Acute Assessment and Plan: Till now patient has been in sinus rhythm and when he is sleepy becomes bradycardic with heart rate in 40s to 50s. This morning he had episode of tachycardia which appears to be AFib with RVR. He was given magnesium and IV metoprolol and appears to have converted to normal sinus rhythm I will repeat EKG now Check echocardiogram Patient is already on anticoagulation Additional Plan DVT prophylaxis - continue Eliquis Stress ulcer prophylaxis - Pepcid which I will change to p.o. Nutrition -modified diet as per swallow evaluation Code Status - Full Code Subjective Date/time seen: 10/17/21 08:42 Overnight events reviewed. Afebrile. Patient continues to be on room air with stable vital signs. He gets bradycardic
[2021-10-17] MEDS: FAMOTIDINE 20 MG TABLET PO ×2 (08:46→21:16)
[2021-10-17 08:59] LABS: Anion Gap 10 mmol/L (8-16); Blood Urea Nitrogen 35 mg/dL (9-20); Calcium 8.2 mg/dL (8.4-10.2); Carbon Dioxide 23 mmol/L (22-30); Chloride 104 mmol/L (98-107); Estimated CRCL calculation 61 ml/min; Estimated Glomerular Filt Rate 54; Glucose 341 mg/dL (65-110); Potassium 4.1 mmol/L (3.4-5.0); Sodium 137 mmol/L (137-145)
[2021-10-17 12:40] LABS: Glucose Point of Care 326 mg/dl (65-105)
[2021-10-17] MEDS: KCL 40 MEQ/WATER 100 ML 100 ML 25 ML IVPB (12:45)
[2021-10-17] MEDS: INSULIN ASPART (*BKC) 100 UNITS/ML 12 UNITS SUB-Q ×2 (12:46→17:55)
[2021-10-17] MEDS: PERFLUTREN LIPID MICROSPHERES 1.5 ML VIAL DILUTED TO 10 ML TOTAL VOLUME IV PUSH (13:47)
[2021-10-17 16:37] LABS: Glucose Point of Care 287 mg/dl (65-105)
[2021-10-17] MEDS: INSULIN GLARGINE (*BKC) 100 UNITS/ML 70 UNITS SUB-Q (18:27)
[2021-10-17] MEDS: SENNA/DOCUSATE SODIUM TABLET 1 TAB PO (21:16)
[2021-10-17] MEDS: REMDESIVIR 100 MG/NS 250 ML 100 MG/250 ML BAG 250 MG IVPB (21:17)
[2021-10-17 21:31] LABS: Glucose Point of Care 101 mg/dl (65-105)
[2021-10-18] VITALS (22 sets, daily range): BP systolic 115–146; BP diastolic 43–76; PULSE 61–99; RESP 15–32; TEMP 35.7–38.2; O2SAT 90–100
[2021-10-18] MEDS: ALBUMIN HUMAN 25% 25 GM/100 ML 100 ML IVPB ×3 (00:47→11:46)
[2021-10-18 00:56] LABS: Glucose Point of Care 47 mg/dl (65-105)
[2021-10-18] MEDS: DEXTROSE 50% 25 GM/50 ML SYRINGE IV PUSH ×2 (00:58→06:00)
[2021-10-18 01:43] LABS: Glucose Point of Care 108 mg/dl (65-105)
[2021-10-18] MEDS: IPRATROPIUM BR 0.02% INH SOLN 0.5 MG/2.5 ML VIAL INHALATION ×4 (01:54→20:35)
[2021-10-18] MEDS: ALBUTEROL SULFATE NEB 2.5 MG/3 ML INH 5 MG INHALATION ×4 (01:54→20:35)
[2021-10-18 02:31] LABS: Vancomycin Trough 16.1 ug/mL (10.0-20.0)
[2021-10-18] MEDS: PIPERACILLIN/TAZOBACTAM SOD 4.5 GM in SODIUM CHLORIDE 0.9% IV 100 ML 200 ML IVPB ×4 (03:13→21:09)
[2021-10-18] MEDS: CENTRAL LINE FLUSH 10 ML IV PUSH ×4 (05:15→21:10)
[2021-10-18 05:35] LABS: Hematocrit 30.1 % (42.0-52.0); Hemoglobin 9.8 g/dL (14.0-18.0); Mean Corpuscular HGB Conc 32.6 g/dl (32-36); Mean Corpuscular Hemoglobin 29.5 pg (26-34); Mean Corpuscular Volume 90.7 fl (80-100); Mean Platelet Volume 9.8 fl (7.4-10.4); Platelet Count Result 345 k/mm3 (150-375); Red Blood Count 3.32 M/mm3 (4.6-6.20); Red Cell Distribution Width 14.5 % (11.5-14.5); White Blood Count 14.5 K/mm3 (4.5-10.0)
[2021-10-18 05:54] LABS: Alanine Aminotransferase 17 U/L (6-50); Albumin Level 3.7 g/dL (3.5-5.1); Alkaline Phosphatase 45 U/L (38-126); Anion Gap 10 mmol/L (8-16); Aspartate Amino Transferase 30 U/L (17-59); Bilirubin,Total 0.6 mg/dL (0.2-1.3); Blood Urea Nitrogen 33 mg/dL (9-20); Calcium 8.6 mg/dL (8.4-10.2); Carbon Dioxide 24 mmol/L (22-30); Chloride 107 mmol/L (98-107); Estimated CRCL calculation 66 ml/min; Estimated Glomerular Filt Rate 59; Glucose 44 mg/dL (65-110); Magnesium 1.7 mg/dL (1.6-2.3); Phosphorus 1.5 mg/dL (2.5-4.5); Potassium 3.6 mmol/L (3.4-5.0); Sodium 141 mmol/L (137-145)
[2021-10-18 06:40] LABS: Glucose Point of Care 118 mg/dl (65-105)
[2021-10-18 07:36] LABS: INR 2.1; Prothrombin Time 22.5 Seconds (11.1-14.7)
[2021-10-18] MEDS: polyethylene glycoL 3350 17 GM POWD.PACK PO (09:45)
[2021-10-18] MEDS: LORATADINE 10 MG TABLET PO (09:46)
[2021-10-18] MEDS: SIMVASTATIN 10 MG TABLET PO (09:46)
[2021-10-18] MEDS: DEXAMETHASONE SOD PHOS INJ 4 MG/ML VIAL 6 MG IV PUSH (09:46)
[2021-10-18] MEDS: CHOLECALCIFEROL 1,000 UNITS TABLET 2000 UNITS PO (09:46)
[2021-10-18] MEDS: FAMOTIDINE 20 MG TABLET PO ×2 (09:46→21:08)
[2021-10-18] MEDS: APIXABAN 5 MG TABLET PO ×2 (09:46→16:08)
[2021-10-18] MEDS: ESCITALOPRAM OXALATE 10 MG TABLET PO (09:46)
[2021-10-18] MEDS: ACETAMINOPHEN 325 MG TABLET 650 MG PO (10:00)
[2021-10-18] MEDS: INSULIN ASPART (*BKC) 100 UNITS/ML SUB-Q ×2 (11:46→16:05)
[2021-10-18] MEDS: INSULIN ASPART (*BKC) 100 UNITS/ML 12 UNITS SUB-Q ×2 (11:47→16:06)
[2021-10-18 11:49] LABS: Glucose Point of Care 261 mg/dl (65-105)
[2021-10-18 11:49] LABS: Glucose Point of Care 73 mg/dl (65-105)
[2021-10-18] MEDS: HALOPERIDOL LACTATE 5 MG/ML VIAL 2 MG IV PUSH (14:48)
[2021-10-18] MEDS: FUROSEMIDE INJ 40 MG/4 ML VIAL IV PUSH (16:05)
[2021-10-18 16:16] LABS: Glucose Point of Care 384 mg/dl (65-105)
--- NOTE | 2021-10-18 16:58 | PM.IMPN ---
Progress Note: A&P Assessment and Plan (1) Septic shock: Code(s): A41.9 - Sepsis, unspecified organism; R65.21 - Severe sepsis with septic shock Status: Acute Assessment and Plan: patient met criteria for septic shock and was hypotensive in the ED He received 30 mL/kg IV fluid bolus and was treated with IV fluid infusion. 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 Status: Acute Assessment and Plan: poorly controlled and blood sugars elevated likely worsened by dexamethasone Increase dose of Lantus at night and will give additional dose this morning Increase with middle insulin meal insulin Continue high-grade saline sliding scale (3) Dysphagia: Code(s): R13.10 - Dysphagia, unspecified Status: Acute Assessment and Plan: Patient had a swallow evaluation done by speech therapist yesterday and is on modified diet He awaits paid him swallow is poor delayed because of him being tested for COVID-19 CT scan does not show any mass (4) Acute kidney injury: Code(s): N17.9 - Acute kidney failure, unspecified Status: Acute Assessment and Plan: presented with creatinine of 1.5 which is slightly higher than normal. baseline Creatinine unknown Despite IV fluids his creatinine has remained unchanged which suggests that this may be his chronic baseline CK level to 74 FENA 1.3% monitor urine output creatinine electrolytes CT scan did not show any hydronephrosis or stones (5) COVID-19: Code(s): U07.1 - COVID-19 Status: Acute Assessment and Plan: patient tested for COVID-19. He was vaccinated in May of 2020 with 2 doses but did not receive any booster CT scan does not suggest COVID-19 pneumonia but rather consistent with aspiration pneumonia he was started on remdesivir and dexamethasone since he was hypoxic on presentation but now he is on room air, day 4 for both (6) Aspiration pneumonia: Code(s): J69.0 - Pneumonitis due to inhalation of food and vomit Status: Acute Assessment and Plan: see above (7) Metabolic encephalopathy: Code(s): G93.41 - Metabolic encephalopathy Status: Acute Assessment and Plan: Seems to be hallucinating, but he is aware that it is not real, give 1 dose of Haldol, monitor closely, may need some Seroquel to at bedtime for ICU delirium (8) Constipation: Code(s): K59.00 - Constipation, unspecified Status: Acute Assessment and Plan: Improved with scheduled MiraLax and Colace Continue p.r.n. Dulcolax suppository (9) Arrhythmia: Code(s): I49.9 - Cardiac arrhythmia, unspecified Status: Acute Assessment and Plan: Till now patient has been in sinus rhythm and when he is sleepy becomes bradycardic with heart rate in 40s to 50s. This morning he had episode of tachycardia which appears to be AFib with RVR. He was given magnesium and IV metoprolol and appears to have converted to normal sinus rhythm I will repeat EKG now Check echocardiogram Patient is already on anticoagulation Additional Plan DVT prophylaxis - continue Eliquis Stress ulcer prophylaxis - Pepcid which I will change to p.o. Nutrition -modified diet as per swallow evaluation Code Status - Full Code Subjective Date/time seen: 10/18/21 16:58 Interval history: Patient somewhat uncomfortable. He states he has seen bugs everywhere and that they look very room very scary. He say
[2021-10-18] MEDS: METOPROLOL TARTRATE INJ 5 MG/5 ML VIAL IV PUSH (18:28)
[2021-10-18 18:40] LABS: Appearance Urine Clear (Clear); Bilirubin Urine Negative (Negative); Blood Urine Trace-lysed (Negative); Glucose Urine UA Negative (Negative); Ketones Urine Negative (Negative); Leukocyte Esterase Ur Negative LEU/UL (NEGATIVE); Nitrate Urine Negative (Negative); Protein Urine Negative (Negative); Specific Grav Ur <= 1.005 (1.001-1.035); Urobilinogen Urine 0.2 mg/dL (<2.0)
[2021-10-18 18:47] LABS: Add Urine Microscopic? YES; Bacteria Urine Trace /hpf; Color Urine Light Yellow (Yellow); Squamous Epithelial Cell Urine Rare /hpf (Few); WBC Urine 0-3 /hpf (0-3)
[2021-10-18 18:50] LABS: Alanine Aminotransferase 23 U/L (6-50); Albumin Level 3.5 g/dL (3.5-5.1); Alkaline Phosphatase 40 U/L (38-126); Anion Gap 10 mmol/L (8-16); Aspartate Amino Transferase 31 U/L (17-59); Bilirubin,Total 0.7 mg/dL (0.2-1.3); Blood Urea Nitrogen 35 mg/dL (9-20); Calcium 8.4 mg/dL (8.4-10.2); Carbon Dioxide 24 mmol/L (22-30); Chloride 103 mmol/L (98-107); Estimated CRCL calculation 57 ml/min; Estimated Glomerular Filt Rate 50; Glucose 258 mg/dL (65-110); Magnesium 1.9 mg/dL (1.6-2.3); Phosphorus 2.4 mg/dL (2.5-4.5); Potassium 3.9 mmol/L (3.4-5.0); Sodium 137 mmol/L (137-145)
[2021-10-18] MEDS: INSULIN GLARGINE (*BKC) 100 UNITS/ML 55 UNITS SUB-Q (20:59)
[2021-10-18] MEDS: REMDESIVIR 100 MG/NS 250 ML 100 MG/250 ML BAG 250 MG IVPB (21:08)
[2021-10-18] MEDS: SENNA/DOCUSATE SODIUM TABLET 1 TAB PO (21:08)
[2021-10-18 21:46] LABS: Glucose Point of Care 139 mg/dl (65-105)
[2021-10-19] VITALS (20 sets, daily range): BP systolic 128–139; BP diastolic 57–71; PULSE 45–95; RESP 16–25; TEMP 36.2–36.7; O2SAT 92–100
[2021-10-19] MEDS: PIPERACILLIN/TAZOBACTAM SOD 4.5 GM in SODIUM CHLORIDE 0.9% IV 100 ML 200 ML IVPB ×4 (02:37→20:06)
[2021-10-19] MEDS: IPRATROPIUM BR 0.02% INH SOLN 0.5 MG/2.5 ML VIAL INHALATION ×4 (02:42→20:12)
[2021-10-19] MEDS: ALBUTEROL SULFATE NEB 2.5 MG/3 ML INH 5 MG INHALATION ×4 (02:42→20:12)
[2021-10-19 04:59] LABS: Hematocrit 30.3 % (42.0-52.0); Hemoglobin 9.9 g/dL (14.0-18.0); Mean Corpuscular HGB Conc 32.7 g/dl (32-36); Mean Corpuscular Hemoglobin 29.9 pg (26-34); Mean Corpuscular Volume 91.5 fl (80-100); Mean Platelet Volume 9.5 fl (7.4-10.4); Platelet Count Result 304 k/mm3 (150-375); Red Blood Count 3.31 M/mm3 (4.6-6.20); Red Cell Distribution Width 14.6 % (11.5-14.5)
[2021-10-19 05:11] LABS: Alanine Aminotransferase 23 U/L (6-50); Albumin Level 3.1 g/dL (3.5-5.1); Alkaline Phosphatase 44 U/L (38-126); Anion Gap 6 mmol/L (8-16); Aspartate Amino Transferase 33 U/L (17-59); Bilirubin,Total 0.7 mg/dL (0.2-1.3); Blood Urea Nitrogen 40 mg/dL (9-20); Calcium 8.4 mg/dL (8.4-10.2); Carbon Dioxide 29 mmol/L (22-30); Chloride 104 mmol/L (98-107); Estimated CRCL calculation 61 ml/min; Estimated Glomerular Filt Rate 54; Glucose 159 mg/dL (65-110); Magnesium 1.8 mg/dL (1.6-2.3); Phosphorus 2.7 mg/dL (2.5-4.5); Potassium 3.6 mmol/L (3.4-5.0); Sodium 139 mmol/L (137-145)
[2021-10-19 05:20] LABS: INR 2.4; Prothrombin Time 25.1 Seconds (11.1-14.7)
[2021-10-19 07:32] LABS: Glucose Point of Care 143 mg/dl (65-105)
[2021-10-19] MEDS: FAMOTIDINE 20 MG TABLET PO ×2 (07:51→20:05)
[2021-10-19] MEDS: ESCITALOPRAM OXALATE 10 MG TABLET PO (07:51)
[2021-10-19] MEDS: APIXABAN 5 MG TABLET PO ×2 (07:51→16:31)
[2021-10-19] MEDS: CHOLECALCIFEROL 1,000 UNITS TABLET 2000 UNITS PO (07:51)
[2021-10-19] MEDS: CENTRAL LINE FLUSH 10 ML IV PUSH ×4 (07:51→20:06)
[2021-10-19] MEDS: DEXAMETHASONE SOD PHOS INJ 4 MG/ML VIAL 6 MG IV PUSH (07:52)
[2021-10-19] MEDS: SIMVASTATIN 10 MG TABLET PO (07:52)
[2021-10-19] MEDS: LORATADINE 10 MG TABLET PO (07:52)
--- NOTE | 2021-10-19 09:59 | PM.CNPUL ---
Assessment and Plan Assessment and plan (1) Aspiration pneumonia: Code(s): J69.0 - Pneumonitis due to inhalation of food and vomit Status: Acute Assessment and Plan: this 71-year-old man with a history of morbid obesity, history of left hemic plegia it related to previous stroke presented with with fever to 103, low blood pressure and acute mental status changes related to sepsis. Patient was tested positive for COVID-19 infection on the day of admission. Has been treated with IV antibiotics, Levophed and IV fluids. His clinical condition has significantly improved. Currently he is hemodynamically stable on no supplemental oxygen. Diagnostic studies on admission have shown small infiltrate in the left lower lobe question related to aspiration question atelectasis. latest chest x-ray showed small lung volumes and new pleural effusions bilaterally greater on right probably related to fluid overload. Plan: continue with current antibiotic regimen for possible sepsis. I would repeat chest x-ray in the upright position to assess size of bilateral pleural effusions and also for lung infiltrates. Patient will need further workup with video swallow study to exclude dysphagia with aspiration as well as sleep study to exclude sleep disordered breathing. (2) Type 2 diabetes mellitus with hyperglycemia, with long-term current use of insulin: Code(s): E11.65 - Type 2 diabetes mellitus with hyperglycemia; Z79.4 - longterm (current) use of insulin Status: Acute (3) Dysphagia: Code(s): R13.10 - Dysphagia, unspecified Status: Acute (4) Pneumonia due to COVID-19 virus: Code(s): U07.1 - COVID-19; J12.82 - Pneumonia due to coronavirus disease 2019 Status: Acute (5) Septic shock: Code(s): A41.9 - Sepsis, unspecified organism; R65.21 - Severe sepsis with septic shock Status: Acute (6) Acute respiratory failure with hypoxia: Code(s): J96.01 - Acute respiratory failure with hypoxia Status: Acute History of Present Illness History of Present Illness Consult date: 10/19/21 Chief complaint: covid+ hypoxic Narrative: This 71-year-old man with a history of diabetes, left hemiplegia due to prior CVA presented with acute mental status changes and fever to 103 Five days ago. The patient resides at a local [facility]. Reportedly the patient was tested positive for COVID at the [facility] on the day of admission. In the emergency room he appeared drowsy and his temperature was 103?. Reportedly the patient was complaining of difficulty swallowing approximately 1 week prior to coming to the hospital. The patient was found to have hypoxemia requiring supplemental oxygen at 10 liters/minute via nasal cannula. In the emergency room he developed low blood pressure and was treated with fluids. The patient was subsequently admitted to the intensive care unit and has been treated for possible sepsis with antibiotics and IV fluids. Chest imaging studies suggested aspiration pneumonia. I was asked to see the patient regarding his respiratory status. The patient is currently in the intensive care unit without supplemental oxygen. He appears fully awake and has had no respiratory symptoms. Upon questioning he stated that he was bitten by 2 spiders 2 weeks ago and developed some difficulty swallowing. He was unable to take anything by mouth. He also had cough productive but was unable to cough up any any phlegm. He had no shortness of breath. His lactic acid was mildly elevated. The patient has been treated with vasopressor agents, IV fluids with the I/O being positive for approximately 4 L. Last chest x-ray taken today showed small lung volumes and possibly bilateral pleural effusions greater on right. Review of Systems Review of Systems: All systems reviewed are unremarkable except as noted in H&P and below. [facility] Past Medical History Medical History (Updated 10/17/21 @ 08:48 by Blank
--- NOTE | 2021-10-19 11:21 | PCNFU ---
Nutrition Follow-Up Complete: Increased Protein needs as related to wounds as evidenced by deep tissue pressure ulcer reported. Goal: Adequate Intake of at least 75% of meals/supplements Patient is progressing towards goal. We will continue current goal. Pt current nutrition is DBCC/Soft and Bite Sized, Level 6 with Mildly Thick liquids, Level 2. Last recorded weight is 129.5 kg, up from 120 kg on admit. Bowel Motility:+BM reported 10/19 Labs Reviewed:Hgb 9.9,Hct 30.3, Alb 3.1,GFR 54, BUN 40, Glu 159 Meds Noted:Vit D, Vancomycin, Lantus, Decadron, Lexapro, Pepcid, Atrovent, Senokot, Zocor. Skin: Right buttock deep tissue pressure ulcer-Deep Tissue. Additional Notes: Nutrition follow up. Spoke with nursing today due to COVID precautions. Oral Intake has been improving. Feeding self. Patient is consuming [place] BID providing an additional 90 kcals and 2.5 gms protein. Agree with diet orders at this time. Monitoring: RD will monitor every 3 days.
[2021-10-19] MEDS: INSULIN ASPART (*BKC) 100 UNITS/ML SUB-Q ×2 (11:59→16:24)
[2021-10-19 12:03] LABS: Glucose Point of Care 230 mg/dl (65-105)
[2021-10-19] MEDS: ACETAMINOPHEN 325 MG TABLET 650 MG PO (13:54)
--- NOTE | 2021-10-19 14:54 | PCPTNOTE ---
Spoke with urgent care, pt is a sharon lift/bed bound at baseline. Spoke with hospitalist about discharging patient due to patient being at baseline- hospitalist agreed. Orders discharged.
--- NOTE | 2021-10-19 14:56 | PM.IMPN ---
Progress Note: A&P Assessment and Plan (1) Septic shock: Code(s): A41.9 - Sepsis, unspecified organism; R65.21 - Severe sepsis with septic shock Status: Acute Assessment and Plan: Source likely appears to be aspiration pneumonia Blood culture 1/2 positive for staphylococcus warneri which is likely contaminant Repeat blood cultures ordered, negative so far, still pending Continue vanc and Zosyn, antibiotic day 5, started on October 15, 2021 (2) Type 2 diabetes mellitus with hyperglycemia, with long-term current use of insulin: Code(s): E11.65 - Type 2 diabetes mellitus with hyperglycemia; Z79.4 - penitentiary (current) use of insulin Status: Acute Assessment and Plan: poorly controlled and blood sugars elevated likely worsened by dexamethasone Increase dose of Lantus at night and will give additional dose this morning Increase with middle insulin meal insulin Continue intensive sliding scale (3) Dysphagia: Code(s): R13.10 - Dysphagia, unspecified Status: Acute Assessment and Plan: Modified barium swallow study pending (4) Acute kidney injury: Code(s): N17.9 - Acute kidney failure, unspecified Status: Acute Assessment and Plan: Resolved (5) COVID-19: Code(s): U07.1 - COVID-19 Status: Acute Assessment and Plan: Completed 5 day course of remdesivir, day 5 of dexamethasone (6) Aspiration pneumonia: Code(s): J69.0 - Pneumonitis due to inhalation of food and vomit Status: Acute Assessment and Plan: see above (7) Metabolic encephalopathy: Code(s): G93.41 - Metabolic encephalopathy Status: Acute Assessment and Plan: Resolved (8) Constipation: Code(s): K59.00 - Constipation, unspecified Status: Acute Assessment and Plan: Improved with scheduled MiraLax and Colace Continue p.r.n. Dulcolax suppository (9) Arrhythmia: Code(s): I49.9 - Cardiac arrhythmia, unspecified Status: Acute Assessment and Plan: Stable Additional Plan DVT prophylaxis - continue Eliquis Stress ulcer prophylaxis - Pepcid which I will change to p.o. Nutrition -modified diet as per swallow evaluation Code Status - Full Code Subjective Date/time seen: 10/19/21 14:56 Interval history: Patient resting comfortably no complaints. He denies any pain, no trouble breathing. No nausea vomiting diarrhea. No fevers chills or overnight events noted. Review of Systems Review of Systems: All systems reviewed & are unremarkable except as noted in HPI and below ( HPI) Exam Narrative: General: Pt is alert awake and in NAD, he does occasionally pick at bugs that he sees in the air Lungs/Chest: Coarse breath sounds throughout, improved aeration upper airway Cardiac: RRR. Normal S1 S2. No murmurs Circulation: Pedal pulses are intact and symmetrical. Abdomen: Normal bowel sounds.. Soft. NT. ND. Extremities: No clubbing, cyanosis, no edema : Stringer in place Neurologic: Follows commands. AO x3 PERRL, hemiparetic on left side, patient does have some movement but is significantly weak. Follows commands on right side with both extremities Skin: No Rash HEENT: poor dentition, no other abnormality seen Objective Data Vital Signs Vital Signs: Vital Signs - 24 hr 10/18/21 16:00 10/18/21 16:00 10/18/21 16:00 Temperature 97.7 F Pulse Rate 61 61 61 Respiratory Rate 22 H 24 H Blood Pressure 115/53 L Pulse Oximetry 93 93 Oxygen Delivery Nasal Cannula Oxygen Flow Rate 2 10/18/21 18:00 10/18/21 18:28 10/18/21 20:37 Temperature Pulse Rate 99 93 96 Respiratory Rate 15 Blood Pressure Pulse Oximetry Oxygen Delivery Oxygen Flow Rate 10/18/21 20:39 10/18/21 20:45 10/18/21 20:00 Temperature Pulse Rate 85 82 Respiratory Rate 23 H Blood Pressure Pulse Oximetry 100 Oxygen Delivery Nasal Cannula Oxygen Flow Rate 2 10/18/21 20:00
[2021-10-19] MEDS: INSULIN ASPART (*BKC) 100 UNITS/ML 12 UNITS SUB-Q (16:25)
[2021-10-19 16:26] LABS: Glucose Point of Care 317 mg/dl (65-105)
[2021-10-19] MEDS: INSULIN GLARGINE (*BKC) 100 UNITS/ML 55 UNITS SUB-Q (20:05)
[2021-10-19] MEDS: SENNA/DOCUSATE SODIUM TABLET 1 TAB PO (20:06)
[2021-10-19 20:13] LABS: Glucose Point of Care 279 mg/dl (65-105)
[2021-10-20] VITALS (13 sets, daily range): BP systolic 108–131; BP diastolic 47–62; PULSE 45–104; RESP 16–24; TEMP 36.3–36.8; O2SAT 94–98
[2021-10-20] MEDS: ALBUTEROL SULFATE NEB 2.5 MG/3 ML INH 5 MG INHALATION ×3 (02:19→14:33)
[2021-10-20] MEDS: IPRATROPIUM BR 0.02% INH SOLN 0.5 MG/2.5 ML VIAL INHALATION ×3 (02:19→14:33)
[2021-10-20 02:39] LABS: Hematocrit 29.4 % (42.0-52.0); Hemoglobin 9.5 g/dL (14.0-18.0); Mean Corpuscular HGB Conc 32.3 g/dl (32-36); Mean Corpuscular Hemoglobin 29.3 pg (26-34); Mean Corpuscular Volume 90.7 fl (80-100); Mean Platelet Volume 9.8 fl (7.4-10.4); Platelet Count Result 318 k/mm3 (150-375); Red Blood Count 3.24 M/mm3 (4.6-6.20); Red Cell Distribution Width 14.6 % (11.5-14.5)
[2021-10-20] MEDS: PIPERACILLIN/TAZOBACTAM SOD 4.5 GM in SODIUM CHLORIDE 0.9% IV 100 ML 200 ML IVPB (02:40)
[2021-10-20 02:52] LABS: Alanine Aminotransferase 22 U/L (6-50); Albumin Level 3.1 g/dL (3.5-5.1); Alkaline Phosphatase 39 U/L (38-126); Anion Gap 5 mmol/L (8-16); Aspartate Amino Transferase 20 U/L (17-59); Bilirubin,Total 0.5 mg/dL (0.2-1.3); Blood Urea Nitrogen 45 mg/dL (9-20); Calcium 8.2 mg/dL (8.4-10.2); Carbon Dioxide 27 mmol/L (22-30); Chloride 103 mmol/L (98-107); Estimated CRCL calculation 61 ml/min; Estimated Glomerular Filt Rate 54; Glucose 213 mg/dL (65-110); Magnesium 1.9 mg/dL (1.6-2.3); Potassium 3.6 mmol/L (3.4-5.0); Sodium 135 mmol/L (137-145)
[2021-10-20 03:09] LABS: Vancomycin Trough 12.2 ug/mL (10.0-20.0)
[2021-10-20] MEDS: CENTRAL LINE FLUSH 10 ML IV PUSH (04:16)
[2021-10-20 07:42] LABS: Glucose Point of Care 233 mg/dl (65-105)
--- NOTE | 2021-10-20 09:21 | PM.IMPN ---
Progress Note: A&P Assessment and Plan (1) Septic shock: Code(s): A41.9 - Sepsis, unspecified organism; R65.21 - Severe sepsis with septic shock Status: Acute Assessment and Plan: Resolved, Source likely appears to be aspiration pneumonia Blood culture 1/2 positive for staphylococcus warneri which is likely contaminant Repeat blood cultures negative (2) Type 2 diabetes mellitus with hyperglycemia, with long-term current use of insulin: Code(s): E11.65 - Type 2 diabetes mellitus with hyperglycemia; Z79.4 - detention (current) use of insulin Status: Acute Assessment and Plan: poorly controlled and blood sugars elevated likely worsened by dexamethasone Increase dose of Lantus at night and will give additional dose this morning Increase with middle insulin meal insulin Continue intensive sliding scale (3) Dysphagia: Code(s): R13.10 - Dysphagia, unspecified Status: Acute Assessment and Plan: Modified barium swallow study pending (4) Acute kidney injury: Code(s): N17.9 - Acute kidney failure, unspecified Status: Acute Assessment and Plan: Resolved (5) COVID-19: Code(s): U07.1 - COVID-19 Status: Acute Assessment and Plan: Completed 5 day course of remdesivir, day 5 of dexamethasone (6) Aspiration pneumonia: Code(s): J69.0 - Pneumonitis due to inhalation of food and vomit Status: Acute Assessment and Plan: Vanc and Zosyn started on October 15, 2021, both these antibiotics were discontinued and patient was started on Augmentin on October 20, 2021 (7) Metabolic encephalopathy: Code(s): G93.41 - Metabolic encephalopathy Status: Acute Assessment and Plan: Resolved (8) Constipation: Code(s): K59.00 - Constipation, unspecified Status: Acute Assessment and Plan: Improved with scheduled MiraLax and Colace Continue p.r.n. Dulcolax suppository (9) Arrhythmia: Code(s): I49.9 - Cardiac arrhythmia, unspecified Status: Acute Assessment and Plan: Stable Plan Anticipate discharge on Augmentin after bedside swallow study determines appropriate diet Additional Plan DVT prophylaxis - continue Eliquis Stress ulcer prophylaxis - Pepcid which I will change to p.o. Nutrition -modified diet as per swallow evaluation Code Status - Full Code Subjective Date/time seen: 10/20/21 09:21 Interval history: Aid at bedside spoon feeding breakfast. Resting comfortably in bed watching TV. No overnight events noted. No complaints. Review of Systems Review of Systems: All systems reviewed & are unremarkable except as noted in HPI and below ( HPI) Exam Narrative: General: Patient resting comfortably in bed, no acute distress HEENT: Atraumatic, normocephalic, mucous membranes moist CV: Regular rate and rhythm, S1, S2, no murmurs rubs or gallops noted Lungs: Clear to auscultation bilaterally, no rales or crackles noted, no wheezes, good air entry Abdomen: Soft, nontender, nondistended Extremities: Normal to inspection, no edema noted, deficits noted on left side from prior CVA Skin: No rashes noted, no lesions or wounds seen Psych: Euthymic, normal affect Objective Data Vital Signs Vital Signs: Vital Signs - 24 hr 10/19/21 09:44 10/19/21 09:54 10/19/21 10:00 Temperature Pulse Rate 59 L 58 L 63 Respiratory Rate 22 H 20 Blood Pressure Pulse Oximetry Oxygen Delivery 10/19/21 12:00 10/19/21 12:00 10/19/21 14:53 Temperature 98 F Pulse Rate 63 63 52 L Respiratory Rate 25 H 20 Blood Pressure 139/57 L Pulse Oximetry 92 Oxygen Delivery 10/19/21 15:04 10/19/21 16:00 10/19/21 16:00 Temperature 98 F Pulse Rate 50 L 54 L 60 Respiratory Rate 21 H 16 Blood Pressure 138/65 Pulse Oximetry 98 Oxygen Delivery 10/19/21 20:12 10/19/21 20:13 10/19/21 20:20 Temperature Pulse Rate 47 L 45 L 48 L Respirat
[2021-10-20] MEDS: INSULIN ASPART (*BKC) 100 UNITS/ML SUB-Q ×3 (09:22→17:33)
[2021-10-20] MEDS: INSULIN ASPART (*BKC) 100 UNITS/ML 12 UNITS SUB-Q ×3 (09:23→17:34)
[2021-10-20] MEDS: AMOXICILLIN/CLAVULANATE K 875-125 MG TAB 1 TABLET PO (09:24)
[2021-10-20] MEDS: APIXABAN 5 MG TABLET PO ×2 (09:25→17:34)
[2021-10-20] MEDS: DEXAMETHASONE SOD PHOS INJ 4 MG/ML VIAL 6 MG IV PUSH (09:25)
[2021-10-20] MEDS: ESCITALOPRAM OXALATE 10 MG TABLET PO (09:25)
[2021-10-20] MEDS: FAMOTIDINE 20 MG TABLET PO (09:25)
[2021-10-20] MEDS: LORATADINE 10 MG TABLET PO (09:26)
[2021-10-20] MEDS: SIMVASTATIN 10 MG TABLET PO (09:26)
[2021-10-20] MEDS: CHOLECALCIFEROL 1,000 UNITS TABLET 2000 UNITS PO (09:26)
--- NOTE | 2021-10-20 13:13 | PM.PNPUL ---
Progress Note: A&P Assessment and Plan (1) Aspiration pneumonia: Code(s): J69.0 - Pneumonitis due to inhalation of food and vomit Status: Acute Assessment and Plan: this 71-year-old man with a history of morbid obesity, history of left hemic plegia related to previous stroke presented with fever to 103, low blood pressure and acute mental status changes related to sepsis.? Patient was tested positive for COVID-19 infection on the day of admission.? Has been treated with IV antibiotics, Levophed and IV fluids.? His clinical condition has significantly improved.? Currently he is hemodynamically stable on no supplemental oxygen.? Diagnostic studies? on admission have shown small infiltrate in the left lower lobe question related to aspiration question atelectasis. Today's chest x-ray showed small lung volumes and improvement of basal infiltrates/ atelectasis. There is still evidence of small pleural effusions bilaterally most likely related to fluid overload Plan: patient did not have evidence of respiratory failure related to COVID 19 infection. I would thus discontinue IV steroids. Also I would gently diurese patient regarding fluid overload with small pleural effusions bilaterally. The patient will need video swallow study to exclude dysphagia with aspiration and also sleep study to exclude sleep apnea. Need to evaluate patient in the outpatient Pulmonary Clinic following sleep study. Will sign off please call with any questions. (2) Acute respiratory failure with hypoxia: Code(s): J96.01 - Acute respiratory failure with hypoxia Status: Acute (3) COVID-19: Code(s): U07.1 - COVID-19 Status: Acute Subjective Date/time seen: 10/20/21 13:13 patient remaining on room air. He has no new respiratory symptoms. He has been afebrile. IV antibiotics were discontinued. Exam Narrative: GENERAL APPEARANCE: Well developed, well nourished, alert and cooperative, and appears to be in no acute distress While in supine position without supplemental oxygen in the intensive care unit. SKIN: Inspection of the skin reveals no rashes, ulcerations or petechiae. HEENT: Sclerae anicteric and conjunctivae pink and moist. Extraocular movements were intact and pupils were equal. NECK: Supple. There was no thyroid enlargement, and no tenderness, or masses were felt. CHEST: Normal AP diameter and normal contour without any kyphoscoliosis. LUNGS: Clear breath sounds anteriorly decreased breath sounds lateral chest bilaterally, no wheezing CARDIAC: There was a regular rate and rhythm without any murmurs. ABDOMEN: Soft and nontender with normal bowel sounds. There was no organomegaly. LYMPH NODES: No lymphadenopathy was appreciated in the neck. EXTREMITIES: No cyanosis, clubbing or edema. NEUROLOGIC: Alert and oriented x 3. Normal affect. Objective Data Vital Signs Vital Signs: Vital Signs - 24 hr 10/19/21 14:53 10/19/21 15:04 10/19/21 16:00 Temperature 36.6 C Pulse Rate 52 L 50 L 54 L Respiratory Rate 20 21 H 16 Blood Pressure 138/65 Pulse Oximetry 98 Oxygen Delivery 10/19/21 16:00 10/19/21 20:12 10/19/21 20:13 Temperature Pulse Rate 60 47 L 45 L Respiratory Rate 20 Blood Pressure Pulse Oximetry 99 Oxygen Delivery Room Air 10/19/21 20:20 10/19/21 20:00 10/19/21 20:00 Temperature Pulse Rate 48 L 52 L 52 L Respiratory Rate 22 H 18 Blood Pressure Pulse Oximetry 94 Oxygen Delivery Room Air 10/19/21 20:00 10/20/21 00:00 10/20/21 00:00 Temperature 36.2 C L 36.3 C L Pulse Rate 52 L 50 L 52 L Respiratory Rate 18 18 Blood Pressure 137/71 131/62 Pulse Oximetry 98 97 Oxygen Delivery 10/20/21 02:19 10/20/21 02:27 10/20/21 04:00 Temperature Pulse Rate 55 L 54 L 52 L Respiratory Rate 20 22 H Blood Pressure Pulse Oximetry Oxygen Delivery 10/20/21 04:00 10/20/21 07:46 10/20/21 08:32 Temperature 36.3 C L 36.8 C Pulse Rate 46 L 4
[2021-10-20 13:29] LABS: Glucose Point of Care 250 mg/dl (65-105)
--- NOTE | 2021-10-20 14:07 | PM.DS ---
DS: Admitting Diagnosis Discharge Date October 20, 2021 Admitting Diagnosis Acute hypoxic respiratory failure secondary to COVID pneumonia versus aspiration pneumonia DS: Discharge Diagnosis Discharge Diagnosis (1) Septic shock: Code(s): A41.9 - Sepsis, unspecified organism; R65.21 - Severe sepsis with septic shock Status: Acute Assessment and Plan: Resolved, Source likely appears to be aspiration pneumonia Blood culture 1/2 positive for staphylococcus warneri which is likely contaminant Repeat blood cultures negative (2) Type 2 diabetes mellitus with hyperglycemia, with long-term current use of insulin: Code(s): E11.65 - Type 2 diabetes mellitus with hyperglycemia; Z79.4 - housing officer (current) use of insulin Status: Acute Assessment and Plan: poorly controlled and blood sugars elevated likely worsened by dexamethasone Increase dose of Lantus at night and will give additional dose this morning Increase with middle insulin meal insulin Continue intensive sliding scale (3) Dysphagia: Code(s): R13.10 - Dysphagia, unspecified Status: Acute Assessment and Plan: Modified barium swallow study pending (4) Acute kidney injury: Code(s): N17.9 - Acute kidney failure, unspecified Status: Acute Assessment and Plan: Resolved (5) COVID-19: Code(s): U07.1 - COVID-19 Status: Acute Assessment and Plan: Completed 5 day course of remdesivir, day 5 of dexamethasone (6) Aspiration pneumonia: Code(s): J69.0 - Pneumonitis due to inhalation of food and vomit Status: Acute Assessment and Plan: Vanc and Zosyn started on October 15, 2021, both these antibiotics were discontinued and patient was started on Augmentin on October 20, 2021 (7) Metabolic encephalopathy: Code(s): G93.41 - Metabolic encephalopathy Status: Acute Assessment and Plan: Resolved (8) Constipation: Code(s): K59.00 - Constipation, unspecified Status: Acute Assessment and Plan: Improved with scheduled MiraLax and Colace Continue p.r.n. Dulcolax suppository (9) Arrhythmia: Code(s): I49.9 - Cardiac arrhythmia, unspecified Status: Acute Assessment and Plan: Stable Plan Anticipate discharge on Augmentin after bedside swallow study determines appropriate diet DS: Summary Hospital Course Hospital Course: 71-year-old male with past medical history significant for diabetes left hemiplegia left over from a prior CVA presented to the ER from his care center due to lethargy and increased work of breathing. He has been positive for COVID since October 14. [facility] stated [facility] was minimally responsive when he is normally alert and oriented. He also had a fever up to 103. He was requiring 10 L of high-flow oxygen in the ER that was able to come down when he was able to clear sputum down to 5 L. patient also had an episode of hypotension requiring Levophed, this was able to be weaned off relatively quickly. He does have a history of dysphagia consider was some concern for aspiration pneumonia versus COVID related pneumonia. He was started on Decadron as well as remdesivir. He also was started on empiric antibiotic coverage with cefepime and vancomycin. Of note, he also had acute kidney injury. Initial blood cultures for pansensitive Staphylococcus warneri. Repeat blood cultures were negative. Pulmonology was consulted and recommended dysphagia workup. Due to patient's COVID positive status, he will be unable to have a modified barium swallow until October 24, 2021. All of his symptoms resolved, antibiotics were de-escalated to Augmentin. He was discharged in good condition back to his nursing facility with close outpatient management of his dysphagia, he was discharged on the diet recommended by speech therapy that was safe for him, he will need to have a swallow study done by October 24 at the earliest. Time Spent w
[2021-10-20 17:31] LABS: Glucose Point of Care 327 mg/dl (65-105)
== END 2021-10-20 18:24 | DRG 871 ==
LOC: ANHED 23:05 → ANHICU 10-15 02:08 → ANH3MEDSUR 10-21 09:43 → ANHICU 10-21 09:43
PROVIDERS: Internal Medicine; Admitting Provider Internal Medicine; Emergency Provider Emergency Medicine; Visit Provider Student in an Organized Health Care Education/Training Program
DX: A41.9 Sepsis, unspecified organism (principal); J96.01 Acute respiratory failure with hypoxia; U07.1 COVID-19; R65.21 Severe sepsis with septic shock; G93.41 Metabolic encephalopathy; J69.0 Pneumonitis due to inhalation of food and vomit; N17.9 Acute kidney failure, unspecified; I69.354 Hemiplegia and hemiparesis following cerebral infarction affecting left non-dominant side; R13.10 Dysphagia, unspecified; E11.65 Type 2 diabetes mellitus with hyperglycemia; Z79.4 Long term (current) use of insulin; K56.41 Fecal impaction; Z79.899 Other long term (current) drug therapy; Z79.01 Long term (current) use of anticoagulants; Z87.891 Personal history of nicotine dependence; E66.01 Morbid (severe) obesity due to excess calories; I49.9 Cardiac arrhythmia, unspecified; Z68.37 Body mass index [BMI] 37.0-37.9, adult
CPT/HCPCS: 36415; 51701; 51702; 71045; 71250; 74176; 80048; 80053; 80202; 81001; 82140; 82550; 82570; 82728; 82948; 83036; 83605; 83615; 83735; 84100; 84145; 84300; 84439; 84443; 84480; 85025; 85027; 85610; 86140; 87040; 87077; 87186; 92526; 92610; 93005; 94640; 96365; 99285; A9270; C1751; C8929; C9803; J0131; J0248; J0692; J1100; J1630; J1815; J1940; J2543; J3370; J3475; J3480; J7030; J7050; J7120; P9047; Q9957; U0003; U0005

== ENCOUNTER 2021-11-11 13:01 | Outpatient (CLI) | payer OTHER, MEDICARE, MEDICAID, SELFPAY ==
--- NOTE | ~2021-11-11 | XR_ITS ---
MODIFIED ESOPHAGRAM HISTORY: Pneumonitis due to inhalation of food and involvement TECHNIQUE: Modified barium esophagram was performed on 11/11/2021. I administered fluoroscopy and perfo rmed the exam with speech pathologist. Patient was seated for lateral fluoroscopic imaging for inges tion of thin liquids, pudding, solids and quantified amounts, followed by thin liquids in uncontrolle d amounts. This was recorded on tape. A single fluoroscopic spot image was also recorded. The DAP for this procedure was 2.5 Gycm2. The amount of fluoroscopy time used during this procedure was 1.5 sarah kate. FINDINGS: Oral stage: Adequate function. Pharyngeal stage: Inconsistent laryngeal penetration without aspiration of thin liquids. Cervical/esophageal stage: Adequate function. IMPRESSION: Inconsistent laryngeal penetration without aspiration of thin liquids. Please correlate with speech pathologist findings and specific feeding recommendations. Reviewed, dictated and finalized at location A. IMPRESSION: Inconsistent laryngeal penetration without aspiration of thin liqui ds. Please correlate with speech pathologist findings and specific feeding rec ommendations.
--- NOTE | 2021-11-11 14:59 | STOPEVAL ---
MODIFIED BARIUM SWALLOW Thank you for referring Riley Priest to [facility] [place].? No further Speech Therapy is indicated at this facility. Referring Physician Date Attending Provider: Lindsay Riggs DO Therapy Assessment Status Assessment Status Assessment Status Evaluation Outpatient Past Medical History Past Medical History Source of Past Medical History Patient Neurological History Hx Cerebrovascular Accident (CVA) Yes: left sided weakness Cardiovascular History Hx Hypercholesterolemia Yes Hx Hypertension Yes Hx Diabetes Yes HEENT History Hx Sinus Problems Yes: sinus surgery Pain Assessment Timing of Pain Assessment Timing of Pain Assessment Assessment Self Report Self Report Pain Level 0 Pain Score Pain Score 0: Self Report Modified Barium Swallow Evaluation Consistency Mixed Consistency 5 mL Method of Presentation Spoon Oral Preparatory Symptoms Within Functional Limits Oral Phase Symptoms Within Functional Limits Pharyngeal Phase Symptoms Within Functional Limits Severity of Vallecular Residue None - 0% No Residue Severity of Pyriform Sinus Residue None - 0% No Residue 8 Point Laryngeal Penetration-Aspiration Material Does Not Enter Airway Scale Cervical/Esophageal Symptoms Within Functional Limits Pureed Consistency 5 mL Method of Presentation Spoon Oral Preparatory Symptoms Within Functional Limits Oral Phase Symptoms Within Functional Limits Pharyngeal Phase Symptoms Within Functional Limits Severity of Vallecular Residue None - 0% No Residue Severity of Pyriform Sinus Residue None - 0% No Residue 8 Point Laryngeal Penetration-Aspiration Material Does Not Enter Airway Scale Cervical/Esophageal Symptoms Within Functional Limits Pureed Consistency 3 mL Method of Presentation Spoon Oral Preparatory Symptoms Within Functional Limits Oral Phase Symptoms Within Functional Limits Pharyngeal Phase Symptoms Within Functional Limits Severity of Vallecular Residue None - 0% No Residue Severity of Pyriform Sinus Residue None - 0% No Residue 8 Point Laryngeal Penetration-Aspiration Material Does Not Enter Airway Scale Cervical/Esophageal Symptoms Within Functional Limits Thin Uncontrolled 1 Method of Presentation Cup Oral Preparatory Symptoms Within Functional Limits Oral Phase Symptoms Within Functional Limits Pharyngeal Phase Symptoms Laryngeal Penetration Severity of Vallecular Residue None - 0% No Residue Severity of Pyriform Sinus Residue None - 0% No Residue 8 Point Laryngeal Penetration-Aspiration Material Enters the Airway, Scale Remains Above Vocal Folds, is Ejected Pharyngeal Phase Comments
== END 2021-11-11 13:02 | disposition home or self-care (01) ==
PROVIDERS: Visit Provider Student in an Organized Health Care Education/Training Program
DX: R13.10 Dysphagia, unspecified (principal); J69.0 Pneumonitis due to inhalation of food and vomit
CPT/HCPCS: 92611